=== PATIENT | male | born 1955 | race Caucasian/White ===

== ENCOUNTER 2024-01-21 07:42 | Outpatient (CLI) | payer MEDICARE, SELFPAY ==
[2024-01-21 08:14] LABS: Basophils Percent Auto 0.2 % (0.2-1.2); Eosinophils Percent Auto 0.2 % (0-4.4); Hematocrit 44.7 % (42.0-52.0); Hemoglobin 15.4 g/dL (14.0-18.0); Immature Granulocyte Absolute 0.04 K/mm3 (0.00-0.031); Immature Granulocyte Percent A 0.5 % (0-0.5); Lymphocytes Absolute Auto 2.27 K/mm3 (0.9-3.2); Lymphocytes Percent Auto 25.7 % (18.3-44.2); Mean Corpuscular HGB Conc 34.5 g/dl (32-36); Mean Corpuscular Volume 95.9 fl (80-100); Mean Platelet Volume 9.9 fl (7.4-10.4); Monocytes Absolute Auto 0.7 K/mm3 (0.1-0.6); Monocytes Percent Auto 7.4 % (2.6-8.5); Neutrophils Absolute Auto 5.8 K/mm3 (1.3-6.7); Platelet Count Result 212 k/mm3 (150-375); Red Blood Count 4.66 M/mm3 (4.6-6.20); Red Cell Distribution Width 12.7 % (11.5-14.5); White Blood Count 8.8 K/mm3 (4.5-10.0)
[2024-01-21 08:29] LABS: Rheumatoid Factor < 12.0 IU/ML (<12)
[2024-01-21 08:30] LABS: Alanine Aminotransferase 30 U/L (6-50); Albumin Level 4.6 g/dL (3.5-5.1); Alkaline Phosphatase 77 U/L (38-126); Anion Gap 11 mmol/L (4-12); Aspartate Amino Transferase 23 U/L (17-59); Bilirubin,Total 0.8 mg/dL (0.2-1.3); Blood Urea Nitrogen 16 mg/dL (9-20); CRP < 0.5 mg/dL (<1.0); Calcium 9.1 mg/dL (8.4-10.2); Carbon Dioxide 26 mmol/L (22-30); Chloride 102 mmol/L (98-107); Cholesterol 211 mg/dL (0-200); Estimated Glomerular Filt Rate > 60; Glucose 110 mg/dL (65-110); HDL Direct 61 mg/dL; Potassium 4.5 mmol/L (3.4-5.0); Sodium 139 mmol/L (137-145); Triglycerides 99 mg/dL (<150)
[2024-01-21 08:39] LABS: LDL Cholesterol Direct 128 mg/dL
[2024-01-21 08:57] LABS: Prostate Specific Antigen 1.1 ng/mL (< OR = 4.0)
[2024-01-21 09:03] LABS: Erythrocyte Sedimentation Rate 9 mm/hr (0-20)
[2024-01-21 09:14] LABS: Free T4 Free Thyroxine 0.86 ng/mL (0.78-2.19)
[2024-01-22 02:23] LABS: Triiodothyronine T3 Free 2.8 pg/mL (2.3-4.2)
[2024-01-24 18:43] LABS: Testosterone Free 37.9 pg/mL (35.0-155.0); Testosterone Total 214 ng/dL (250-1100)
== END 2024-01-21 07:43 | disposition home or self-care (01) ==
PROVIDERS: PCP Internal Medicine; Visit Provider Internal Medicine
DX: M25.50 Pain in unspecified joint (principal); E78.5 Hyperlipidemia, unspecified; R53.83 Other fatigue; Z12.5 Encounter for screening for malignant neoplasm of prostate
CPT/HCPCS: 36415; 80053; 80061; 84153; 84402; 84403; 84439; 84443; 84481; 85025; 85652; 86038; 86039; 86140; 86430; G0103

== ENCOUNTER 2024-09-03 12:00 | Outpatient (CLI) | payer MEDICARE, SELFPAY ==
[2024-09-03 13:55] LABS: Alanine Aminotransferase 33 U/L (6-50); Albumin Level 4.3 g/dL (3.5-5.1); Alkaline Phosphatase 68 U/L (38-126); Anion Gap 11 mmol/L (4-12); Aspartate Amino Transferase 31 U/L (17-59); Bilirubin,Total 0.9 mg/dL (0.2-1.3); Blood Urea Nitrogen 11 mg/dL (9-20); Calcium 8.8 mg/dL (8.4-10.2); Carbon Dioxide 22 mmol/L (22-30); Chloride 105 mmol/L (98-107); Estimated Glomerular Filt Rate > 60; Glucose 79 mg/dL (65-110); Magnesium 2.2 mg/dL (1.6-2.3); Potassium 4.3 mmol/L (3.4-5.0); Sodium 138 mmol/L (137-145)
== END 2024-09-03 12:01 | disposition home or self-care (01) ==
LOC: ANHLAB 12:04
PROVIDERS: PCP Internal Medicine; Visit Provider Internal Medicine
DX: R55 Syncope and collapse (principal)
CPT/HCPCS: 36415; 80053; 83735

== ENCOUNTER 2024-09-04 10:47 | Outpatient (CLI) | payer MEDICARE, BC, SELFPAY ==
[2024-09-04 11:11] LABS: Basophils Percent Auto 0.3 % (0.2-1.2); Eosinophils Absolute Auto 0.2 K/mm3 (0-0.3); Eosinophils Percent Auto 2.3 % (0-4.4); Hematocrit 46.1 % (42.0-52.0); Hemoglobin 15.8 g/dL (14.0-18.0); Immature Granulocyte Absolute 0.04 K/mm3 (0.00-0.031); Immature Granulocyte Percent A 0.6 % (0-0.5); Lymphocytes Absolute Auto 2.26 K/mm3 (0.9-3.2); Lymphocytes Percent Auto 34.7 % (18.3-44.2); Mean Corpuscular HGB Conc 34.3 g/dl (32-36); Mean Corpuscular Hemoglobin 32.4 pg (26-34); Mean Corpuscular Volume 94.5 fl (80-100); Monocytes Absolute Auto 0.7 K/mm3 (0.1-0.6); Monocytes Percent Auto 10.9 % (2.6-8.5); Neutrophils Absolute Auto 3.3 K/mm3 (1.3-6.7); Neutrophils Percent Auto 51.2 % (45.5-73.1); Platelet Count Result 250 k/mm3 (150-375); Red Blood Count 4.88 M/mm3 (4.6-6.20); Red Cell Distribution Width 12.7 % (11.5-14.5); White Blood Count 6.5 K/mm3 (4.5-10.0)
== END 2024-09-04 10:48 | disposition home or self-care (01) ==
LOC: ANHLAB 10:50
PROVIDERS: PCP Internal Medicine; Visit Provider Internal Medicine
DX: R55 Syncope and collapse (principal)
CPT/HCPCS: 36415; 85025

== ENCOUNTER 2024-09-10 13:59 | Outpatient (CLI) | payer MEDICARE, BC, SELFPAY ==
--- NOTE | ~2024-09-10 | US_ITS ---
EXAMINATION: US carotid duplex BI DATE: 09/10/2024 14:41 INDICATION: Syncope and collapse TECHNIQUE: Grayscale, color Doppler, and pulsed Doppler images of the cervical carotid arteries were obtained. The degree of vessel stenosis is placed in one of the following categories: normal, <50%, 5 0-69%, >=70% but less than near-occlusion, near-occlusion, or total occlusion. Note that percent sten osis relative to normal distal artery lumen diameter is indirectly measured from velocity measurement s as described by Gonzalo, et al. Radiology 2003; 229:340-346. COMPARISON: None. FINDINGS: RIGHT: The right common carotid artery (CCA) peak systolic velocity (PSV) is 85 cm/s. The right internal car otid artery (ICA) PSV is 70 cm/s. The right ICA end-diastolic velocity (EDV) is 24 cm/s. The right IC A/CCA PSV ratio is 1.0. Grayscale and color Doppler images demonstrate no appreciable plaque or steno sis in the ICA. The external carotid artery (ECA) PSV is 109 cm/s. There is antegrade flow in the rig ht vertebral artery. LEFT: The left CCA PSV is 124 cm/s. The left ICA PSV is 49 cm/s. The left ICA EDV is 15 cm/s. The left ICA/ CCA PSV ratio is 0.6. Grayscale and color Doppler images demonstrate no appreciable plaque or stenosi s in the ICA. The ECA PSV is 135 cm/s. There is antegrade flow in the left vertebral artery. IMPRESSION: 1. No evident plaque or stenosis in the right internal carotid artery. 2. No evident plaque or stenosis in the left internal carotid artery. Reviewed, dictated and finalized at location L. [employer]
--- NOTE | ~2024-09-10 | CT_ITS ---
EXAMINATION: CT brain wo con DATE: 09/10/2024 15:07 INDICATION: Syncope and collapse. TECHNIQUE: Computed tomography (CT) of the head was performed without intravenous contrast. The mA wa s adjusted according to patient size. Iterative reconstruction technique was employed. The dose-lengt h product was 681.00 mGy-cm. COMPARISON: None FINDINGS: There are scattered areas of low attenuation in the cerebral white matter, which is within normal limits for the patient's age. There is no intracranial hemorrhage, acute infarction, or abnor mal intracranial mass lesion. The ventricles are normal in size. There is mucosal thickening in the p aranasal sinuses. The orbits are normal. The mastoid air cells are normal. IMPRESSION: 1. Normal aging brain. Reviewed, dictated and finalized at location A. NQUENT TAX COLLECTOR IMPRESSION: 1. Normal aging brain.
--- OUTSIDE RECORDS SUMMARY | 2024-09-10 15:20 | XMS_ITS | Data Portability ---
Author Organization [place] - [facility] [employer], Main Office Address [address] [place] [address] Assessment Encounter Date Assessment Date Assessment LastModified by Organization Details LastModified Time 09/13/2022 09/13/2022 Screenings and immunizations discussed in order were patient agreeable and appropriate blood work 6 month follow-up [email or web address] Not available 09/15/2022 20:06:57 04/04/2023 04/04/2023 Lose weight walk regularly conservative measures for GERD and for cholesterol control see me in 6 months. Not available 04/14/2023 21:34:08 Plan of Treatment Reminders Order Date Submit Date Provider Last Modified By Organization Details Last Modified Time Details Appointments None recorded . Lab PSA, serum or plasma 023 09/14/19 23 [facility], [address] [place], [address], 3 09:43:40 lipid panel, blood 023 09/14/19 23 [facility], [address] [place], [address], 3 09:43:34 CMP, serum or plasma 023 09/14/19 23 [facility], [address] [place], [address], 3 19:02:29 CBC w/ auto diff 023 09/14/19 23 [facility], [address] [place], [address], 3 18:56:19 Referral None recorded . Procedures None recorded . Surgeries None recorded . Imaging None recorded . Medication Orders None recorded . Patient TargetsNo targets recorded. Patient InstructionsNo instructions recorded. Reason for Referral None Reported. Results Created Date Observation Date Name Description Value Unit Range Abnormal Flag Note LastModifiedBy Organization Detail LastModifiedTime 09/14/1909/13/2022 CBC/C OMPLE TE BLD COUNT W/DIF F white blood cells 8.5 x10'3 /uL 4.2-10 .8 Not Available [facility] (Lab) [address] [place], [address], 09/13/2022 18:56:19 09/14/1909/13/2022 CBC/C OMPLE TE BLD COUNT W/DIF F red blood cells 4.64 x10'6 /uL 4.10-5 .80 Not Available [facility] (Lab) [address] [place], [address], 09/13/2022 18:56:19 09/14/1909/13/2022 CBC/C OMPLE TE BLD COUNT W/DIF F hemoglobin 14.8 g/dL 13.2-1 7.0 Not Available [facility] (Lab) [address] [place], [address], 09/13/2022 18:56:19 09/14/1909/13/2022 CBC/C OMPLE TE BLD COUNT W/DIF F hematocrit 44.4 % 39.3-5 0.0 Not Available [facility] (Lab) [address] [place], [address], 09/13/2022 18:56:19 09/14/1909/13/2022 CBC/C OMPLE TE BLD COUNT W/DIF F mean red cell volume 95.7 fL 80.0-9 7.0 Not Available [facility] (Lab) [address] [place], [address], 09/13/2022 18:56:19 09/14/1909/13/2022 CBC/C OMPLE TE BLD COUNT W/DIF F mean red cell hemoglobin 31.9 pg 27.0-3 3.0 Not Available [facility] (Lab) [address] [place], [address], 09/13/2022 18:56:19 09/14/19 23 09/13/2022 CBC/C OMPLE TE BLD COUNT W/DIF F mean RBC HGB concentratio n 33.3 g/dL 31.0-3 6.0 Not Available [facility] (Lab) [address] [place], [address], 09/13/2022 18:56:19 09/14/1909/13/2022 CBC/C OMPLE TE BLD COUNT W/DIF F red cell distribution width 12.6 % 11.8-1 5.5 Not Available [facility] (Lab) [address] [place], [address], 09/13/2022 18:56:19 09/14/19 23 09/13/2022 CBC/C OMPLE TE BLD COUNT W/DIF F platelets 227 x10'3 /uL 150-40 0 Not Available [facility] (Lab) [address] [place], [address], 09/13/2022 18:56:19 09/14/19 23 09/13/2022 CBC/C OMPLE TE BLD COUNT W/DIF F mean platelet volume 10.1 fL 9.0-12 .4 Not Available [facility] (Lab) [address] [place], [address], 09/13/2022 18:56:19 09/14/1909/13/2022 CBC/C OMPLE TE BLD COUNT W/DIF F neutrophils 52.0 % 39.0-7 2.0 Not Available [facility] (Lab) [address] [place], [address], 09/13/2022 18:56:19 09/14/19 23 09/13/2022 CBC/C OMPLE TE BLD COUNT W/DIF F lymphocytes 35.2 % 16.0-4 7.0 Not Available [facility] (Lab) [address] [place], [address], 09/13/2022 18:56:19 09/14/19 23 09/13/2022 CBC/C OMPLE TE BLD COUNT W/DIF F monocytes 9.7 % 5.0-12 .0 Not Available [facility] (Lab) [address] [place], [address], 09/13/2022 18:56:19 09/14/19 23 09/13/2022 CBC/C OMPLE TE BLD COUNT W/DIF F eosinophils 2.0 % 1.0-7. 0 Not Available [facility] (Lab) [address] [place], [address], 09/13/2022 18:56:19 09/14/19 23 09/13/2022 CBC/C OMPLE TE BLD COUNT W/DIF F basophils 0.5 % 0.0-2. 0 Not Available [facility] (Lab) [address] [place], [address], 09/13/2022 18:56:19 09/14/19 23 09/13/2022 CBC/C OMPLE TE BLD COUNT W/DIF F immature granulocytes 0.6 % 0.00-0 .50 high Not Available [facility] (Lab) [address] [place], [address], 09/13/2022 18:56:19 09/14/1909/13/2022 CBC/C OMPLE TE BLD COUNT W/DIF F neutrophils, absolute count 4.44 x10'3 /uL 1.5-8. 0 Not Available [facility] (Lab) [address] [place], [address], 09/13/2022 18:56:19 09/14/19 23 09/13/2022 CBC/C OMPLE TE BLD COUNT W/DIF F lymphocytes, absolute count 3.01 x10'3 /uL 1.07-3 .43 Not Available [facility] (Lab) [address] [place], [address], 09/13/2022 18:56:19 09/14/19 23 09/13/2022 CBC/C OMPLE TE BLD COUNT W/DIF F monocytes, absolute count 0.83 x10'3 /uL 0.29-0 .99 Not Available [facility] (Lab) [address] [place], [address], 09/13/2022 18:56:19 09/14/19 23 09/13/2022 CBC/C OMPLE TE BLD COUNT W/DIF F eosinophils, absolute count 0.17 x10'3 /uL 0.02-0 .53 Not Available [facility] (Lab) [address] [place], [address], 09/13/2022 18:56:19 09/14/19 23 09/13/2022 CBC/C OMPLE TE BLD COUNT W/DIF F basophils, absolute count 0.04 x10'3 /uL 0.01-0 .08 Not Available [facility] (Lab) [address] [place], [address], 09/13/2022 18:56:19 09/14/1909/13/2022 CBC/C OMPLE TE BLD COUNT W/DIF F immature granulocytes ,absolute 0.05 x10'3 /uL 0.00-0 .05 Not Available [facility] (Lab) [address] [place], [address], 09/13/2022 18:56:19 09/14/19 23 09/13/2022 CBC/C OMPLE TE BLD COUNT W/DIF F nucleated red blood cells 0.0 % -0 Not Available [facility] (Lab) [address] [place], [address], 09/13/2022 18:56:19 09/14/1909/13/2022 CBC/C OMPLE TE BLD COUNT W/DIF F NRBC# 0.00 x10'3 /uL Not Available [facility] (Lab) [address] [place], [address], 09/13/2022 18:56:19 09/14/1909/13/2022 LIPID PANEL cholesterol 203 mg/dL 140-19 9 high NIH ZOHRA NSUS RECOM MENDA TION FOR GERSON STERO L: ADULT CHILD LOW RISK: <200 <170 BORDE RLINE : <200- 239 ----- HIGH RISK: >240 >200 Not Available [facility] (Lab) [address] [place], [address], 09/13/2022 19:02:18 09/14/1909/13/2022 LIPID PANEL triglyceride s 256 mg/dL 0-150 high NIH ZOHRA NSUS REPOR T RECOM MENDA TION FOR TRIGL YCERI ARLYN: ADULT CHILD LOW RISK: <150 ----- BODER LINE: 150-1 99 ----- HIGH RISK: >200 ----- Not Available [facility] (Lab) [address] [place], [address], 09/13/2022 19:02:18 09/14/19 23 09/13/2022 LIPID PANEL HDL cholesterol 54 mg/dL 40- Not Available [facility] (Lab) [address] [place], [address], 09/13/2022 19:02:18 09/14/19 23 09/13/2022 LIPID PANEL LDL cholesterol, calculated 98 mg/dL 0-130 NIH ZOHRA NSUS REPOR T RECOM MENDA TIONS FOR LDL: ADULT CHILD LOW RISK <130 <110 (OPTI MAL LDL) <100 ----- BORDE RLINE : 130-1 59 ----- HIGH RISK: >160 >130 A TRIGL YCERI DE RESUL T >400 INVAL IDATE S THE CALCU LATIO N FOR LDL FRACT IONAT ION - THE LDL RESUL T WILL NOT BE REPOR CHRIS. Not Available [facility] (Lab) [address] [place], [address], 09/13/2022 19:02:18 09/14/19 23 09/13/2022 COMPR EHENS KARLY METAB OLIC PANEL sodium 138 mmol/ L 137-14 5 Not Available [facility] (Lab) [address] [place], [address], 09/13/2022 19:02:29 09/14/19 23 09/13/2022 COMPR EHENS KARLY METAB OLIC PANEL potassium 4.5 mmol/ L 3.5-5. 1 Not Available [facility] (Lab) [address] [place], [address], 09/13/2022 19:02:29 09/14/19 23 09/13/2022 COMPR EHENS KARLY METAB OLIC PANEL chloride 103 mmol/ L 98-107 Not Available [facility] (Lab) [address] [place], [address], 09/13/2022 19:02:29 09/14/19 23 09/13/2022 COMPR EHENS KARLY METAB OLIC PANEL carbon dioxide 27 mmol/ L 22-30 Not Available [facility] (Lab) [address] [place], [address], 09/13/2022 19:02:29 09/14/19 23 09/13/2022 COMPR EHENS KARLY METAB OLIC PANEL anion gap 12.5 mmol/ L 14-22 low Not Available [facility] (Lab) [address] [place], [address], 09/13/2022 19:02:29 09/14/19 23 09/13/2022 COMPR EHENS KARLY METAB OLIC PANEL glucose 89 mg/dL 70-99 Not Available [facility] (Lab) [address] [place], [address], 09/13/2022 19:02:29 09/14/19 23 09/13/2022 COMPR EHENS KARLY METAB OLIC PANEL BUN 15 mg/dL 8-19 Not Available [facility] (Lab) [address] [place], [address], 09/13/2022 19:02:29 09/14/19 23 09/13/2022 COMPR EHENS KARLY METAB OLIC PANEL creatinine 0.93 mg/dL 0.66-1 .25 Not Available [facility] (Lab) [address] [place], [address], 09/13/2022 19:02:29 09/14/19 23 09/13/2022 COMPR EHENS KARLY METAB OLIC PANEL GFR >60 Refer ence Range : [place] ge GFR Healt hy Adult : >60 mL/mi n/1.7 3 m2 Chron ic Kidne y Disea se: 15-60 mL/mi n/1.7 3 m2 Kidne y Failu re: <15/m L/min /1.73 m2 www.n iddk. nih.g ov The MDRD study equat ion has not been valid ated in child daniela <18 years of age; pregn ant women ; the elder ly >85 years of age; or in some racia l or ethni c subgr oups, such as [facility] nics. Outsi de the valid ated angi eters , estim ated GFR is less accur ate, requi ring clini mckenna judgm ent on a case- by-ca se basis . Clini mckenna inter preta tion for other races and ages must be made by the clini nina. The MDRD study equat ion has not been valid ated for the evalu ation of serum creat inine relat ed to nutri joseph l statu s or medic ation usage . For perso ns <18 years of age, a pedia tric GFR calcu lator is avail able on the [facility] websi te: https ://maggie guevara.basil rg/pr ofess ional s/kdo qi/gf r_cal culat or Not Available [facility] (Lab) [address] [place], [address], 09/13/2022 19:02:29 09/14/19 23 09/13/2022 COMPR EHENS KARLY METAB OLIC PANEL alkaline phosphatase 101 U/L 38-126 Not Available [facility] (Lab) [address] [place], [address], 09/13/2022 19:02:29 09/14/19 23 09/13/2022 COMPR EHENS KARLY METAB OLIC PANEL alanine aminotransfe rase 33 U/L 0-50 Not Available [facility] (Lab) [address] [place], [address], 09/13/2022 19:02:29 09/14/19 23 09/13/2022 COMPR EHENS KARLY METAB OLIC PANEL aspartate aminotransfe rase 28 U/L 15-46 Not Available [facility] (Lab) [address] [place], [address], 09/13/2022 19:02:29 09/14/19 23 09/13/2022 COMPR EHENS KARLY METAB OLIC PANEL bilirubin, total 0.50 mg/dL 0.20-1 .30 Not Available [facility] (Lab) [address] [place], [address], 09/13/2022 19:02:29 09/14/19 23 09/13/2022 COMPR EHENS KARLY METAB OLIC PANEL calcium 9.1 mg/dL 8.4-10 .2 Not Available [facility] (Lab) [address] [place], [address], 09/13/2022 19:02:29 09/14/19 23 09/13/2022 COMPR EHENS KARLY METAB OLIC PANEL total protein 7.4 g/dL 6.3-8. 2 Not Available [facility] (Lab) [address] [place], [address], 09/13/2022 19:02:29 09/14/19 23 09/13/2022 COMPR EHENS KARLY METAB OLIC PANEL albumin 4.3 g/dL 3.0-4. 4 Not Available [facility] (Lab) [address] [place], [address], 09/13/2022 19:02:29 09/14/19 23 09/13/2022 COMPR EHENS KARLY METAB OLIC PANEL globulin 3.1 g/dL 2.6-4. 2 Not Available [facility] (Lab) [address] [place], [address], 09/13/2022 19:02:29 09/14/19 23 09/13/2022 COMPR EHENS KARLY METAB OLIC PANEL A/G ratio 1.4 ratio 1.0-2. 0 Not Available [facility] (Lab) [address] [place], [address], 09/13/2022 19:02:29 09/14/19 23 09/13/2022 PSA SCREE N PSA medicare screen 1.14 NG/mL 0.00-4 .00 Not Available [facility] (Lab) [address] [place], [address], 09/13/2022 19:43:06 Result Notes None recorded. Problems Name Problem SNOMED Code Status Onset Date Resolution Date Notes Provider Name and Address Organization Details Recorded Time Pneumonia 093132742 Active Not Available [facility] 3 18:11:50 Gastroesophag eal reflux disease 090796814 Active Not Available [facility] 3 18:11:50 Bronchitis 12537210 Active Not Available [facility] 3 18:11:50 Sinusitis 38755427 Active Not Available [facility] 3 18:11:50 Cough 92738526 Active Not Available [facility] 3 18:11:50 Hypercholeste rolemia 57209174 Active 2022 Khoi Syed MD [address] [place] [address], [facility] [address], [place], [address] , [employer] 3 21:33:50 Problem Notes None recorded. Procedures Surgical History Date Name Laterality Status Provider Name and Address Organization Details Recorded Time Tonsillectomy completed EAGLE Andre [facility] 09/13/2022 14:49:25 Imaging Results None recorded. Procedure Notes None recorded. Medical Equipment None Reported. Allergies No known drug allergies Medications Name Sig Start Date Stop Date Status Note LastModified by Organization Details LastModified Time prednisone 10 mg tablet Take by oral route. 03/20 completed Not Available Not Available Not Available Medrol (Aureliano) 4 mg tablets in a dose pack Take 1 tablet by oral route as directed . active Not Available Not Available No t Available Zithromax Z-Aureliano 250 mg tablet Take 2 TABLEts the first day then 1/day 03/20 completed Not Available Not Available Not Available Levaquin 500 mg tablet Take 1 tablet every 24 hours by oral route. active Not Available Not Available No t Available Vitals Date Recorded Body height Body mass index (BMI) Body weight Body temperature Heart rate Systolic blood pressure Diastolic blood pressure Provider Name and Address Organization Details Last Updated DateTime 3 182.88 cm 36.1 kg/m2 985545. 57 g 97.6 [degF] 74 /min 134 mm[Hg] 84 mm[Hg] EAGLE Andre [facility] 3 14:58:24 Date Recorded Body height Body mass index (BMI) Body weight Body temperature Heart rate Systolic blood pressure Diastolic blood pressure Provider Name and Address Organization Details Last Updated DateTime 3 182.88 cm 36.2 kg/m2 967682. 16 g 98.3 [degF] 68 /min 132 mm[Hg] 80 mm[Hg] Vane coleman RN [facility] [employer] 3 11:32:32 Social History Question Answer Notes LastModified by Organization Details LastModified Time Tobacco Smoking Status Current Every Day Smoker cigars EAGLE Andre [facility] 09/13/2022 14:52:20 Do You Have An Advance Directive? No [email or web address] Information not available 09/13/2022 What Is Your Level Of Alcohol Consumption? Occasional [email or web address] Information not available 09/13/2022 Are You Blind Or Do You Have Difficulty Seeing? Yes Glasses Information not available 04/04/2023 Is Blood Transfusion Acceptable In An Emergency? Yes [email or web address] Information not available 09/13/2022 What Is Your Level Of Caffeine Consumption? Heavy [email or web address] Information not available 09/13/2022 In The 14 Days Before Symptom Onset, Have You Had Close Contact With A Laboratory-confi rmed COVID-19 While That Case Was Ill? No [email or web address] Information not available 09/13/2022 In The 14 Days Before Symptom Onset, Have You Had Close Contact With A Person Who Is Under Investigation For COVID-19 While That Person Was Ill? No [email or web address] Information not available 09/13/2022 Are You Currently Employed? Yes [email or web address] Information not available 09/13/2022 Are You Deaf Or Do You Have Serious Difficulty Hearing? No Information not available 04/04/2023 What Type Of Diet Are You Following? REGULAR [email or web address] Information not available 09/13/2022 What Is The Highest Grade Or Level Of School You Have Completed Or The Highest Degree You Have Received? 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 Yes Brother Passed In May [email or web address] Information not available 09/13/2022 What Is The Fluoride Status Of Your Home? Unknown [email or web address] Information not available 09/13/2022 Do You Use Insect Repellent Routinely? Yes [email or web address] Information not available 09/13/2022 Where Do You Live? [facility] [email or web address] Information not available 09/13/2022 Do You Have A Medical Power Of Press Cutter? No [email or web address] Information not available 09/13/2022 What Was The Date Of Your Most Recent Tobacco Screening? 09/13/2022 [email or web address] Information not available 09/13/2022 How Many Children Do You Have? 2 [email or web address] Information not available 09/13/2022 Do You Have Any Pets? No [email or web address] Information not available 09/13/2022 What Is Your Relationship Status? [email or web address] Information not available 09/13/2022 Do You Use Your Seat Belt Or Car Seat Routinely? Yes [email or web address] Information not available 09/13/2022 Do You Have Smoke And Carbon Monoxide Detectors In Your Home? Yes [email or web address] Information not available 09/13/2022 Are You Passively Exposed To Smoke? Yes [email or web address] Information not available 09/13/2022 Are There Any Smokers In Your House? No [email or web address] Information not available 09/13/2022 Do You Feel Stressed (tense, Restless, Nervous, Or Anxious, Or Unable To Sleep At Night)? [id number] [email or web address] Information not available 09/13/2022 Do You Use Any Illicit Or Recreational Drugs? No Information not available 09/13/2022 Do You Use Sunscreen Routinely? Yes [email or web address] Information not available 09/13/2022 How Many Years Have You Smoked Tobacco? 20 Information not available 09/13/2022 Have You Recently Traveled Abroad? No [email or web address] Information not available 09/13/2022 Do You Have Any Dietary Restrictions? No [email or web address] Information not available 09/13/2022 Do You Or Have You Ever Used Any Other Forms Of Tobacco Or Nicotine? No [email or web address] Information not available 09/13/2022 Sex: Unknown Functional Status Question Answer Note LastModified by Organizat ion Details LastModified Time Do you have difficulty walking or climbing stairs? No Information not available 04/04/2023 Do you have transportation difficulties? No Information not available 04/04/2023 Are you able to walk? [email or web address] Information not available 04/04/2023 Do you have difficulty doing errands alone? No Information not available 04/04/2023 Are you able to care for yourself? Yes Information not available 04/04/2023 Do you have difficulty dressing or bathing? No Information not available 04/04/2023 What is your exercise level? None [email or web address] Information not available 09/13/2022 Mental Status Question Answer Note LastModified by Organization D etails LastModified Time Do you have difficulty concentrating, remembering or making decisions? No Information no t available 04/04/2023 Family History Relationship Description Onset Age of this Age Resolved Age Notes LastModified by Organization Details LastModified Time Mother Family history of malignant neoplasm [email or web address] Not available 03/2023 14:48:52 Mother Rheumatoid arthritis [email or web address] Not available 03/2023 14:48:32 Mother Hypertensive disorder [email or web address] Not available 03/2023 14:48:45 Father Family history of malignant neoplasm [email or web address] Not available 03/2023 14:48:57 Medical History Condition Response KIDNEY DISEASE Y HAVE YOU BEEN HOSPITALIZED OR SEEN IN [facility] ER IN THE PAST YEAR ? N Immunizations Vaccine Type Date Status Note Provider Nam e and Address Organization Details Recorded Time COVID-19 vaccine, vector-nr, rS-Ad26, PF, 0.5 mL 10/10/2020 completed Not Available [facility] 3 18:11:51 COVID-19, mRNA, LNP-S, PF, 100 mcg/0.5mL dose or 50 mcg/0.25mL dose 07/12/2021 completed Not Available [facility] 3 18:11:51 Past Encounters Encounter ID Performer Location Encounter Start Date Encounter Closed Date Diagnosis/Indication Diagnosis SNOMED-CT Code Diagnosis ICD10 Code Diagnosis Note [id number] Khoi Syed MD [facility] [address] [facility] , [place] [address] 09/13/2022 14:28:49 09/13/2022 16:03:41 Screening for cardiovascular system disease 173508915 Z13.6 Screening for malignant neoplasm of prostate 641300004 Z12.5 Adult heal th examination 822310584 Z00.00 [id number] Khoi Syed MD [facility] [address] [place] [address] 04/04/2023 11:06:21 04/04/2023 12:25:41 Hypercholesterolemia 73259742 E78.00 Gastroesop hageal reflux disease 395826032 K21.9 Health Concerns Section Related Observation LastModified by Organization Detai ls LastModified Time None Recorded Concern Status LastModified by Organization Details LastModified Time None Recorded Advance Directives Directive N: Payers Encounter Date Sequence Insurance Name Policy Number Policy Cordero Covered Member ID Cordero Member ID Guarantor Name 09/13/2022 1 [place] Freddy Gabriel [id number] Freddy Dean Gabriel 09/13/2022 2 [place] [id number] Freddy Vacath [id number] Freddy Janerath 04/04/2023 1 [place] Freddy Janerath [id number] Freddy Dean Gabriel 04/04/2023 2 [place] [id number] Freddy Janerath [id number] Freddy Gabriel Notes Date Note Type Note Provider Name and Address Organization Details Recorded Time 09/13/2022 text/html 67-year-old new patient meds none allergies none surgeries none family history dad liver cancer socially does not smoke drinks 12 beers a week retired COVID vaccine 1 booster flu not up-to-date shingles not up-to-date Khoi Syed MD [address], [facility] [address], [place], [address], [employer] 09/15/2022 20:07:15 04/04/2023 text/html Ankle hurt Mildl y elevated cholesterol Khoi Syed MD [address], [address], [place], [address], [employer] 04/14/2023 21:34:31
--- OUTSIDE RECORDS SUMMARY | 2024-09-10 15:20 | XMS_ITS | CONTINUITY OF CARE DOCUMENT ---
Author Name olvin bah Address Unknown Organization [facility] Address [address] [place] [address] [address] [place] [address] Phone [phone] Care Team Providers Care Tin Assorter Name Role Phone Eric ALEXIS, Negro Unavailable [phone] Khoi Syed DO Unavailable Khoi Syed DO Unavailable INSURANCE PROVIDERS Payer name Policy type / Coverage type [place] red alliance party ID [id number] PAY
--- OUTSIDE RECORDS SUMMARY | 2024-09-10 15:20 | XMS_ITS | Data Portability ---
Author Organization [place] - [facility], [facility] [place] Address [address] [place] [address] Care Team Providers Care Stamp Analyst Name Role Phone JANIS RODRÍGUEZ Primary Care Provider [phone] Assessment No assessment recorded. Plan of Treatment Reminders Order Date Submit Date Provider Last Modified By Organization Details Last Modified Time Details Appointments None recorded. Lab influenza virus A + B + SARS-CoV-2 (COVID19) Ag panel, rapid IA, upper respiratory specimen 2024 025 [email or web address] [facility], [address] [place] [address], [address], [place], [address], 20:20:37 Referral None recorded. Procedures None recorded. Surgeries None recorded. Imaging None recorded. Medication Orders None recorded. Patient TargetsNo targets recorded. Patient Instructions Encounter Date Encounter Id Patient Instructions Last Modified By Organization Details Last Modified Time 08/26/2024 [id number] influenza (flu): care instructions [email or web address] Not available 08/26/2024 20:20:37 Pt has been give n complete discharge instructions; all questions were answered prior to discharge. Not available 08/26/2024 20:20:41 If your conditio n worsens we recommend that you receive another evaluation at the emergency room immediately or contact your primary medical clinics after hours call service to discuss your concerns. You must understand that you've received an Urgent Care treatment only and that you may released before all your medical problems are known or treated. You, the patient, will arrange follow up care as instructed. Return to clinic if symptoms get worse or persist after 48 hours of treatment. [email or web address] Not available 08/26/2024 20:20:48 Reason for Referral None Reported. Results Created Date Observation Date Name Description Value Unit Range Abnormal Flag Note LastModifiedBy Organization Detail LastModifiedTime 08/26/1908/26/2024 influ stiven virus A + B + SARS- CoV-2 (COVI D19) Ag panel , rapid IA, upper respi rator y speci men Flu/COVID-19 Positi ve Flu A Not Available [facility] [place] [address], [address], [place], [address], 08/26/2024 20:19:59 Result Notes None recorded. Problems Name Problem SNOMED Code Status Onset Date Resolution Date Notes Provider Name and Address Organization Details Recorded Time Kidney disease 36809027 Completed 025 08/26/2024 Leroy Ortiz [facility] 19:57:36 Problem Notes None recorded. Procedures Surgical History Date Name Laterality Status Provider Name and Address Organization Details Recorded Time tonsillectomy completed Leroy Ortiz [facility] 08/26/2024 19:58:06 Imaging Results None recorded. Procedure Notes None recorded. Medical Equipment None Reported. Allergies No known drug allergies Medications Name Sig Start Date Stop Date Status Note LastModified by Organization Details LastModified Time azithromycin 250 mg tablet 08/26 completed Not Available Not Available Not Available benzonatate 200 mg capsule TAKE 1 CAPSULE BY MOUTH THREE TIMES DAILY NEEDED 08/26 completed Not Available Not Available Not Available prednisone 20 mg tablet TAKE 1 TABLET BY MOUTH EVERY DAY FOR 7 DAYS 08/26 completed Not Available Not Available Not Available Vitals Date Recorded Heart rate Oxygen saturation Oxygen saturation in Arterial blood by Pulse oximetry Respiratory rate Body height Body mass index (BMI) Body weight Body temperature Systolic blood pressure Diastolic blood pressure Provider Name and Address Organization Details Last Updated DateTime 89 /min 94 % 94 % 16 /min 182.88 cm 35.9 kg/m2 198912. 98 g 97.8 [degF] 164 mm[Hg] 93 mm[Hg] Leroy Ortiz [facility] 19:56:30 Social History None recorded. Functional Status None recorded. Mental Status None recorded. Family History Nothing Reported. Medical History Condition Response Coronary Artery Disease N Anxiety/Depression N Gout N Atrial Fibrillation N Colon Cancer N Kidney Stones N Hyperthyroidism N Breast Cancer N Blood disorders N Ostomy N Lung Disease N COPD N Depression N Glaucoma N Hypothyroidism N Peripheral Arterial Disease N Pacemaker N Clotting Disorder N Prostate Problems N Diverticulitis/Diverticulosis N Paralysis N Lung Mass N Deep Vein Thrombosis N Obstructive Sleep Apnea N Cystic Fibrosis N Anxiety Disorder N Autoimmune disease N Arthritis N Blood Clot N Developmental Problems N Cancer N Stroke N Crohn's Disease N Chronic Kidney Disease N Endometriosis N Bladder or Kidney Problems N High Cholesterol N Liver Disease N Arrhythmia N Dialysis N Schizophrenia N Fibromyalgia N Kidney Disease N Chronic Obstructive Pulmonary Disease N Parkinson's Disease N Migraines N Brain Tumors N ADD/ADHD N Anemia N Multiple Sclerosis N Colon Polyps N Brain Injury N Heart Attack (RI) N Diabetes N Anticoagulation therapy N Cardiomyopathy N Bleeding Disorder N Heart Murmur N Cerebral Palsy N AIDS/HIV N Congestive Heart Failure (CHF) N Hyperlipidemia N Eczema N Back Problems N Diverticulitis N Dementia N Asthma N Atrial Flutter N Lupus N Peripheral Vascular Disease N Psoriasis N Epilepsy/Seizures N Reflux/GERD N Sleep Apnea N Thyroid Disorder N GERD/Reflux N Hepatitis N Aneurysm N Cirrhosis N Heart Disease N Pulmonary Embolism N Hypertension N Autism Spectrum Disorder (ASD) N Osteoporosis N Past Encounters Encounter ID Performer Location Encounter Start Date Encounter Closed Date Diagnosis/Indication Diagnosis SNOMED-CT Code Diagnosis ICD10 Code Diagnosis Note [id number] Bogdan Arredondo, [employer] [facility] [place] [address] [place] [address], [place] [address] 08/26/2024 19:51:27 08/26/2024 20:25:08 Influenza-like illness 65750052 B34.9 Influenza caused by Influenza A virus 555075974 J09.X2 Pt is outside the opportune window for Tamiflu. OTC flu formulatio n medication to be used as directed. Health Concerns Section Related Observation LastModified by Organization Detai ls LastModified Time None Recorded Concern Status LastModified by Organization Details LastModified Time None Recorded Advance Directives Directive None Recorded Payers Encounter Date Sequence Insurance Name Policy Number Policy Cordero Covered Member ID Cordero Member ID Guarantor Name 08/26/2024 2 [place] [id number] Rex Gabriel [id number] Freddy Gabriel 08/26/2024 1 [place] Freddy Gabriel [id number] Freddy Gabriel Notes Date Note Type Note Provider Name and Address Organization Details Recorded Time 08/26/2024 text/html Upper Respirator y SymptomsReported bypatient.Location:[facility]; nasal Quality:congested Severity:moderate Onset/Timing:date of onset: (08/22/2024) Context:no sick contacts Associated Symptoms:no sputum production; no shortness of breath; no wheezing; no sore throat; no vomiting; no diarrhea; no nausea; no conjunctivitis;fatigue ;headache;malaise Bogdan Arredondo, [employer]CHO[employer] TE[employer]ER-C [address] [facility], [place], [address], [facility] - [facility] 08/26/2024 20:21:04
== END 2024-09-10 14:00 | disposition home or self-care (01) ==
PROVIDERS: PCP Internal Medicine; Visit Provider Internal Medicine
DX: R55 Syncope and collapse (principal)
CPT/HCPCS: 70450; 93880

== ENCOUNTER 2024-09-18 13:27 | Outpatient (CLI) | payer MEDICARE, BC, SELFPAY ==
--- NOTE | 2024-09-18 | ECHO_ITS ---
Patient Info Name: Freddy Varela Age: 69 years : 1955 Gender: Male Ht: 72 in Wt: 270 lbs BSA: 2.54 m2 HR: 71 bpm BP: 148 / 88 mmHg Heart Rhythm: Sinus Rhythm Technical Quality: Fair Exam Date: 09/18/2024 2:08 PM Exam Location: Echo Lab Patient Status: Outpatient Admit Date: 09/18/2024 Staff Ordering Physician: KunalKhoi MD Policy Specialist: Ivonne Mariscal RDCS Attending Provider: BessyKhoi MD Exam Type: CA echo doppler color flow Study Info Indications - SYNCOPE AND COLLAPSE Complete two-dimensional, color flow and Doppler transthoracic echocardiogram is performed. Summary 1. Complete two-dimensional, color flow and Doppler transthoracic echocardiogram is performed. 2. Left ventricular chamber dimension is mildly enlarged. 3. Left ventricular systolic function is normal, estimated at 60-65%. 4. The left ventricular diastolic function is grade I diastolic dysfunction. 5. E/e' 13 is mildly elevated. 6. Left atrial chamber dimension is mildly enlarged. 7. There is mild aortic valve sclerosis. 8. There is trace aortic valve regurgitation. 9. The mitral valve has mildly calcified annulus. 10. There is trace tricuspid valve regurgitation. 11. No pulmonary hypertension, estimated pulmonary arterial systolic pressure is 28 mmHg. 12. There is trace pulmonic regurgitation. 13. The aortic root size at the sinus of Valsalva is borderline dilated at 4.0 cm. 14. Dilated inferior vena cava with >50% collapse upon inspiration consistent with elevated right atrial pressure, 10 mmHg. Left Ventricle E/e' 13 is mildly elevated. Left ventricular chamber dimension is mildly enlarged. Left ventricular systolic function is normal, estimated at 60-65%. The left ventricular diastolic function is grade I diastolic dysfunction. Right Ventricle Right ventricular systolic function is normal and with normal TAPSE 2.7 cm. Right ventricular chamber dimension is normal. Left Atria Left atrial chamber dimension is mildly enlarged. Right Atria Right atrial chamber dimension is normal. Aortic Valve The aortic valve is trileaflet. There is mild aortic valve sclerosis. There is no aortic valve stenosis. There is trace aortic valve regurgitation. Pulmonic Valve There is trace pulmonic regurgitation. Mitral Valve The mitral valve has mildly calcified annulus. There is no mitral valve stenosis. There is no mitral valve regurgitation. Tricuspid Valve There is trace tricuspid valve regurgitation. No pulmonary hypertension, estimated pulmonary arterial systolic pressure is 28 mmHg. Pericardium/Pleural There is no pericardial effusion. Inferior Vena Cava Dilated inferior vena cava with >50% collapse upon inspiration consistent with elevated right atrial pressure, 10 mmHg. Aorta The aortic root size at the sinus of Valsalva is borderline dilated at 4.0 cm. Left Ventricular Outflow Tract Name Value Normal LVOT 2D LVOT Diameter 2.0 cm LVOT Doppler LVOT Peak Gradient 5 mmHg LVOT Mean Gradient 2 mmHg LVOT VTI 21 cm LVOT VTI/AV VTI Ratio 0.7 LVOT Stroke Volume 70 ml LVOT CO 5.4 l/min LVOT CI 2.1 l/min/m2 Pulmonic Valve Name Value Normal RVOT Doppler RVOT Peak Gradient 2 mmHg PV Doppler PV Peak Gradient 4 mmHg PV Regurgitation Doppler SD Peak End Diastolic Velocity 122 cm/s Mitral Valve Name Value Normal MV Doppler MV Decel Dickenson 247 cm/s2 MV PHT 76 ms MV Area (PHT) 2.9 cm2 4.0-5.0 MV Diastolic Function MV E Peak Velocity 65 cm/s MV A Peak Velocity 91 cm/s MV E/A 0.7 MV Decel Time 263 ms MV Annular TDI MV E/e' (Septal) 13.3 <=8.0 MV E/e' (Lateral) 13.0 <=8.0 MV E/e' (Average) 13.1 Tricuspid Valve Name Value Normal TV Regurgitation Doppler TR Peak Velocity 211 cm/s TR Peak Gradient 18 mmHg Estimated PAP/RSVP RA Pressure 10 mmHg <=5 PA Systolic Pressure 28 mmHg <36 RV Systolic Pressure 28 mmHg <36 Aortic Valve Name Value Normal AV Doppler AV Peak Velocity 151 cm/s AV Peak Gradient 9 mmHg AV Mean Gradient 5 mmHg AV VTI 30 cm AV Area (Cont Eq VTI) 2.4 cm2 >=3.0 AV Area (Cont Eq Harry) 2.4 cm2 AV Regurgitation 2D LVOT Area 3.3 cm2 Ventricles Name Value Normal LV Dimensions 2D/MM IVS Diastolic Thickness (2D) 1.1 cm 0.6-1.0 LVID Diastole (2D) 5.0 cm 4.2-5.8 LVIW Diastolic Thickness (2D) 1.0 cm 0.6-1.0 LVID Systole (2D) 3.1 cm 2.5-4.0 LVOT Diameter 2.0 cm LV Mass (2D Cubed) 197.28 g 88.00-224.00 LV Mass Index (2D Cubed) 78 g/m2 49-115 Relative Wall Thickness (2D) 0.41 LV Fractional Shortening/Ejection Fraction 2D/MM LV Fractional Shortening (2D) 38 % 25-43 LV EF (2D Teicholz) 68 % 52-72 LV Diastolic Volume (4C MOD) 145 ml LV EF (4C MOD) 60 % LV Diastolic Volume (2C MOD) 135 ml LV EF (2C MOD) 66 % LV Diastolic Volume (BP MOD) 142 ml 62-150 LV Diastolic Volume Index (BP MOD) 56 ml/m2 34-74 LV Systolic Volume (BP MOD) 57 ml 21-61 LV Systolic Volume Index (BP MOD) 22 ml/m2 11-31 LV EF (BP MOD) 60 % 52-72 LV Diastolic Length (4C) 8.7 cm LV Systolic Length (4C) 7.1 cm LV Stroke Volume (4C MOD) 87 ml Atria Name Value Normal RA Dimensions RA Area (4C) 17.4 cm2 <=18.0 Report Signatures
--- OUTSIDE RECORDS SUMMARY | 2024-09-18 13:32 | XMS_ITS | Data Portability ---
Author Organization [place] - [facility] [employer], Main Office Address [address] [place] [address] Assessment Encounter Date Assessment Date Assessment LastModified by Organization Details LastModified Time 09/13/2022 09/13/2022 Screenings and immunizations discussed in order were patient agreeable and appropriate blood work 6 month follow-up Not available 09/15/2022 20:06:57 04/04/2023 04/04/2023 Lose weight walk regularly conservative measures for GERD and for cholesterol control see me in 6 months. Not available 04/14/2023 21:34:08 Plan of Treatment Reminders Order Date Submit Date Provider Last Modified By Organization Details Last Modified Time Details Appointments None recorded . Lab PSA, serum or plasma 023 09/14/19 23 [facility], [address] [place], [address], 3 09:43:40 lipid panel, blood 023 09/14/19 23 [facility], [address] [place], [address], 3 09:43:34 CMP, serum or plasma 023 09/14/19 23 [facility], [address] [place], [address], 3 19:02:29 CBC w/ auto diff 023 09/14/19 23 [facility], [address] [place], [address], 3 18:56:19 Referral None recorded . Procedures [...] 8.5 x10'3 /uL 4.2-10 .8 Not Available [facility] (Lab) [address] [place], [address], 09/13/2022 18:56:19 09/14/1909/13/2022 CBC/C OMPLE TE BLD COUNT W/DIF F red blood cells 4.64 x10'6 /uL 4.10-5 .80 Not Available [facility] (Lab) [address] [place], [address], 09/13/2022 18:56:19 09/14/1909/13/2022 CBC/C OMPLE TE BLD COUNT W/DIF F hemoglobin 14.8 g/dL 13.2-1 7.0 Not Available [facility] (Lab) [address] [place], [address], 09/13/2022 18:56:19 09/14/1909/13/2022 CBC/C OMPLE TE BLD COUNT W/DIF F hematocrit 44.4 % 39.3-5 0.0 Not Available [facility] (Lab) [address] [place], [address], 09/13/2022 18:56:19 09/14/1909/13/2022 CBC/C OMPLE TE BLD COUNT W/DIF F mean red cell volume 95.7 fL 80.0-9 7.0 Not Available [facility] (Lab) [address] [place], [address], 09/13/2022 18:56:19 09/14/1909/13/2022 CBC/C OMPLE TE BLD COUNT W/DIF F mean red cell hemoglobin 31.9 pg 27.0-3 3.0 Not Available [facility] (Lab) [address] [place], [address], 09/13/2022 18:56:19 09/14/19 23 09/13/2022 CBC/C OMPLE TE BLD COUNT W/DIF F mean RBC HGB concentratio n 33.3 g/dL 31.0-3 6.0 Not Available [facility] (Lab) [address] [place], [address], 09/13/2022 18:56:19 09/14/1909/13/2022 CBC/C OMPLE TE BLD COUNT W/DIF F red cell distribution width 12.6 % 11.8-1 5.5 Not Available [facility] (Lab) [address] [place], [address], 09/13/2022 18:56:19 09/14/19 23 09/13/2022 CBC/C OMPLE TE BLD COUNT W/DIF F platelets 227 x10'3 /uL 150-40 0 Not Available [facility] (Lab) [address] [place], [address], 09/13/2022 18:56:19 09/14/19 23 09/13/2022 CBC/C OMPLE TE BLD COUNT W/DIF F mean platelet volume 10.1 fL 9.0-12 .4 Not Available [facility] (Lab) [address] [place], [address], 09/13/2022 18:56:19 09/14/1909/13/2022 CBC/C OMPLE TE BLD COUNT W/DIF F neutrophils 52.0 % 39.0-7 2.0 Not Available [facility] (Lab) [address] [place], [address], 09/13/2022 18:56:19 09/14/19 23 09/13/2022 CBC/C OMPLE TE BLD COUNT W/DIF F lymphocytes 35.2 % 16.0-4 7.0 Not Available [facility] (Lab) [address] [place], [address], 09/13/2022 18:56:19 09/14/19 23 09/13/2022 CBC/C OMPLE TE BLD COUNT W/DIF F monocytes 9.7 % 5.0-12 .0 Not Available [facility] (Lab) [address] [place], [address], 09/13/2022 18:56:19 09/14/19 23 09/13/2022 CBC/C OMPLE TE BLD COUNT W/DIF F eosinophils 2.0 % 1.0-7. 0 Not Available [facility] (Lab) [address] [place], [address], 09/13/2022 18:56:19 09/14/19 23 09/13/2022 CBC/C OMPLE TE BLD COUNT W/DIF F basophils 0.5 % 0.0-2. 0 Not Available [facility] (Lab) [address] [place], [address], 09/13/2022 18:56:19 09/14/19 23 09/13/2022 CBC/C OMPLE TE BLD COUNT W/DIF F immature granulocytes 0.6 % 0.00-0 .50 high Not Available [facility] (Lab) [address] [place], [address], 09/13/2022 18:56:19 09/14/1909/13/2022 CBC/C OMPLE TE BLD COUNT W/DIF F neutrophils, absolute count 4.44 x10'3 /uL 1.5-8. 0 Not Available [facility] (Lab) [address] [place], [address], 09/13/2022 18:56:19 09/14/19 23 09/13/2022 CBC/C OMPLE TE BLD COUNT W/DIF F lymphocytes, absolute count 3.01 x10'3 /uL 1.07-3 .43 Not Available [facility] (Lab) [address] [place], [address], 09/13/2022 18:56:19 09/14/19 23 09/13/2022 CBC/C OMPLE TE BLD COUNT W/DIF F monocytes, absolute count 0.83 x10'3 /uL 0.29-0 .99 Not Available [facility] (Lab) [address] [place], [address], 09/13/2022 18:56:19 09/14/19 23 09/13/2022 CBC/C OMPLE TE BLD COUNT W/DIF F eosinophils, absolute count 0.17 x10'3 /uL 0.02-0 .53 Not Available [facility] (Lab) [address] [place], [address], 09/13/2022 18:56:19 09/14/19 23 09/13/2022 CBC/C OMPLE TE BLD COUNT W/DIF F basophils, absolute count 0.04 x10'3 /uL 0.01-0 .08 Not Available [facility] (Lab) [address] [place], [address], 09/13/2022 18:56:19 09/14/1909/13/2022 CBC/C OMPLE TE BLD COUNT W/DIF F immature granulocytes ,absolute 0.05 x10'3 /uL 0.00-0 .05 Not Available [facility] (Lab) [address] [place], [address], 09/13/2022 18:56:19 09/14/19 23 09/13/2022 CBC/C OMPLE TE BLD COUNT W/DIF F nucleated red blood cells 0.0 % -0 Not Available [facility] (Lab) [address] [place], [address], 09/13/2022 18:56:19 09/14/1909/13/2022 CBC/C OMPLE TE BLD COUNT W/DIF F NRBC# 0.00 x10'3 /uL Not Available [facility] (Lab) [address] [place], [address], 09/13/2022 18:56:19 09/14/1909/13/2022 LIPID PANEL cholesterol 203 mg/dL 140-19 9 high NIH ZOHRA NSUS RECOM MENDA TION FOR GERSNO STERO L: ADULT CHILD LOW RISK: <200 <170 BORDE RLINE : <200- 239 ----- HIGH RISK: >240 >200 Not Available [facility] (Lab) [address] [place], [address], 09/13/2022 19:02:18 09/14/1909/13/2022 LIPID PANEL triglyceride s 256 mg/dL 0-150 high NIH ZOHRA NSUS REPOR T RECOM MENDA TION FOR TRIGL YCERI ARLYN: ADULT CHILD LOW RISK: <150 ----- BODER LINE: 150-1 99 ----- HIGH RISK: >200 ----- Not Available [facility] (Lab) [address] [place], [address], 09/13/2022 19:02:18 09/14/19 23 09/13/2022 LIPID PANEL HDL cholesterol 54 mg/dL 40- Not Available [facility] (Lab) [address] [place], [address], 09/13/2022 19:02:18 09/14/19 23 09/13/2022 LIPID PANEL [...] WILL NOT BE REPOR CHRIS. Not Available [facility] (Lab) [address] [place], [address], 09/13/2022 19:02:18 09/14/19 23 09/13/2022 COMPR EHENS KARLY METAB OLIC PANEL sodium 138 mmol/ L 137-14 5 Not Available [facility] (Lab) [address] [place], [address], 09/13/2022 19:02:29 09/14/19 23 09/13/2022 COMPR EHENS KARLY METAB OLIC PANEL potassium 4.5 mmol/ L 3.5-5. 1 Not Available [facility] (Lab) [address] [place], [address], 09/13/2022 19:02:29 09/14/19 23 09/13/2022 COMPR EHENS KARLY METAB OLIC PANEL chloride 103 mmol/ L 98-107 Not Available [facility] (Lab) [address] [place], [address], 09/13/2022 19:02:29 09/14/19 23 09/13/2022 COMPR EHENS KARLY METAB OLIC PANEL carbon dioxide 27 mmol/ L 22-30 Not Available [facility] (Lab) [address] [place], [address], 09/13/2022 19:02:29 09/14/19 23 09/13/2022 COMPR EHENS KARLY METAB OLIC PANEL anion gap 12.5 mmol/ L 14-22 low Not Available [facility] (Lab) [address] [place], [address], 09/13/2022 19:02:29 09/14/19 23 09/13/2022 COMPR EHENS KARLY METAB OLIC PANEL glucose 89 mg/dL 70-99 Not Available [facility] (Lab) [address] [place], [address], 09/13/2022 19:02:29 09/14/19 23 09/13/2022 COMPR EHENS KARLY METAB OLIC PANEL BUN 15 mg/dL 8-19 Not Available [facility] (Lab) [address] [place], [address], 09/13/2022 19:02:29 09/14/19 23 09/13/2022 COMPR EHENS KARLY METAB OLIC PANEL creatinine 0.93 mg/dL 0.66-1 .25 Not Available [facility] (Lab) [address] [place], [address], 09/13/2022 19:02:29 09/14/19 23 09/13/2022 COMPR EHENS KARLY METAB OLIC PANEL GFR >60 Refer ence Range : [place] ge GFR Healt hy Adult : >60 [...] or ethni c subgr oups, such as [facility] nics. Outsi de the valid ated angi [...] calcu lator is avail able on the [facility] websi te: [email or web address] :[email or web address] [email or web address] rg/pr ofess ional s/kdo qi/gf r_cal culat or Not Available [facility] (Lab) [address] [place], [address], 09/13/2022 19:02:29 09/14/19 23 09/13/2022 COMPR EHENS KARLY METAB OLIC PANEL alkaline phosphatase 101 U/L 38-126 Not Available [facility] (Lab) [address] [place], [address], 09/13/2022 19:02:29 09/14/19 23 09/13/2022 COMPR EHENS KARLY METAB OLIC PANEL alanine aminotransfe rase 33 U/L 0-50 Not Available [facility] (Lab) [address] [place], [address], 09/13/2022 19:02:29 09/14/19 23 09/13/2022 COMPR EHENS KARLY METAB OLIC PANEL aspartate aminotransfe rase 28 U/L 15-46 Not Available [facility] (Lab) [address] [place], [address], 09/13/2022 19:02:29 09/14/19 23 09/13/2022 COMPR EHENS KARLY METAB OLIC PANEL bilirubin, total 0.50 mg/dL 0.20-1 .30 Not Available [facility] (Lab) [address] [place], [address], 09/13/2022 19:02:29 09/14/19 23 09/13/2022 COMPR EHENS KARLY METAB OLIC PANEL calcium 9.1 mg/dL 8.4-10 .2 Not Available [facility] (Lab) [address] [place], [address], 09/13/2022 19:02:29 09/14/19 23 09/13/2022 COMPR EHENS KARLY METAB OLIC PANEL total protein 7.4 g/dL 6.3-8. 2 Not Available [facility] (Lab) [address] [place], [address], 09/13/2022 19:02:29 09/14/19 23 09/13/2022 COMPR EHENS KARLY METAB OLIC PANEL albumin 4.3 g/dL 3.0-4. 4 Not Available [facility] (Lab) [address] [place], [address], 09/13/2022 19:02:29 09/14/19 23 09/13/2022 COMPR EHENS KARLY METAB OLIC PANEL globulin 3.1 g/dL 2.6-4. 2 Not Available [facility] (Lab) [address] [place], [address], 09/13/2022 19:02:29 09/14/19 23 09/13/2022 COMPR EHENS KARLY METAB OLIC PANEL A/G ratio 1.4 ratio 1.0-2. 0 Not Available [facility] (Lab) [address] [place], [address], 09/13/2022 19:02:29 09/14/19 23 09/13/2022 PSA SCREE N PSA medicare screen 1.14 NG/mL 0.00-4 .00 Not Available [facility] (Lab) [address] [place], [address], 09/13/2022 19:43:06 Result Notes None recorded. Problems Name Problem SNOMED Code Status Onset Date Resolution Date Notes Provider Name and Address Organization Details Recorded Time Pneumonia 703147715 Active Not Available [facility] 3 18:11:50 Gastroesophag eal reflux disease 828271743 Active Not Available [facility] 3 18:11:50 Bronchitis 10158049 Active Not Available [facility] 3 18:11:50 Sinusitis 94697677 Active Not Available [facility] 3 18:11:50 Cough 77321510 Active Not Available [facility] 3 18:11:50 Hypercholeste rolemia 59595531 Active 2022 Khoi Syed MD [address] [place] [address], [facility] [address], [place], [address] , [employer] 3 21:33:50 Problem Notes None recorded. Procedures Surgical History Date Name Laterality Status Provider Name and Address Organization Details Recorded Time Tonsillectomy completed EAGLE Andre [employer] 09/13/2022 14:49:25 Imaging Results None recorded. Procedure [...] Updated DateTime 3 182.88 cm 36.1 kg/m2 339630. 57 g 97.6 [degF] 74 /min 134 mm[Hg] 84 mm[Hg] EAGLE Andre [employer] 3 14:58:24 Date Recorded Body height Body mass index (BMI) Body weight Body temperature Heart rate Systolic blood pressure Diastolic blood pressure Provider Name and Address Organization Details Last Updated DateTime 3 182.88 cm 36.2 kg/m2 564585. 16 g 98.3 [degF] 68 /min 132 mm[Hg] 80 mm[Hg] Vane coleman RN [facility] [employer] 3 11:32:32 Social History Question Answer Notes LastModified by Organization Details LastModified Time Tobacco Smoking Status Current Every Day Smoker cigars EAGLE [facility] [employer] 09/13/2022 14:52:20 Do You Have An Advance Directive? No [email or web address] Information not available 09/13/2022 What Is Your Level Of Alcohol Consumption? Occasional [email or web address] Information not available 09/13/2022 Are You Blind Or Do You Have Difficulty Seeing? Yes Glasses Information not available 04/04/2023 Is Blood Transfusion Acceptable In An Emergency? Yes [email or web address] Information not available 09/13/2022 What Is Your Level Of Caffeine Consumption? Heavy [email or web address] Information not available 09/13/2022 In The 14 Days Before Symptom Onset, Have You Had Close Contact With A Laboratory-confi rmed COVID-19 While That Case Was Ill? No [email or web address] Information not available 09/13/2022 In The 14 Days Before Symptom Onset, Have You Had Close Contact With A Person Who Is Under Investigation For COVID-19 While That Person Was Ill? No [email or web address] Information not available 09/13/2022 Are You Currently Employed? Yes [email or web address] Information not available 09/13/2022 Are You Deaf Or Do You Have Serious Difficulty Hearing? No Information not available 04/04/2023 What Type Of Diet Are You Following? REGULAR Information not available 09/13/2022 What Is The Highest Grade Or Level Of School You Have Completed Or The Highest Degree You Have Received? 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 Yes Brother Passed In May [email or web address] Information not available 09/13/2022 What Is The Fluoride Status Of Your Home? Unknown [email or web address] Information not available 09/13/2022 Do You Use Insect Repellent Routinely? Yes [email or web address] Information not available 09/13/2022 Where Do You Live? [facility] [email or web address] Information not available 09/13/2022 Do You Have A Medical Power Of Green Belt? No [email or web address] Information not available 09/13/2022 What Was The Date Of Your Most Recent Tobacco Screening? 09/13/2022 [email or web address] Information not available 09/13/2022 How Many Children Do You Have? 2 [email or web address] Information not available 09/13/2022 Do You Have Any Pets? No [email or web address] Information not available 09/13/2022 What Is Your Relationship Status? [email or web address] Information not available 09/13/2022 Do You Use Your Seat Belt Or Car Seat Routinely? Yes [email or web address] Information not available 09/13/2022 Do You Have Smoke And Carbon Monoxide Detectors In Your Home? Yes [email or web address] Information not available 09/13/2022 Are You Passively Exposed To Smoke? Yes [email or web address] Information not available 09/13/2022 Are There Any Smokers In Your House? No [email or web address] Information not available 09/13/2022 Do You Feel Stressed (tense, Restless, Nervous, Or Anxious, Or Unable To Sleep At Night)? QC95049-4 [email or web address] Information not available 09/13/2022 Do You Use Any Illicit Or Recreational Drugs? No [email or web address] Information not available 09/13/2022 Do You Use Sunscreen Routinely? Yes [email or web address] Information not available 09/13/2022 How Many Years Have You Smoked Tobacco? 20 [email or web address] Information not available 09/13/2022 Have You Recently Traveled Abroad? No [email or web address] Information not available 09/13/2022 Do You Have Any Dietary Restrictions? No [email or web address] Information not available 09/13/2022 Do You Or Have You Ever Used Any Other Forms Of Tobacco Or Nicotine? No [email or web address] Information not available 09/13/2022 Sex: Unknown Functional [...] 04/04/2023 What is your exercise level? None [email or web address] Information not available 09/13/2022 Mental Status Question Answer Note LastModified by Organization D etails LastModified Time Do you have difficulty concentrating, remembering or making decisions? No Information no t available 04/04/2023 Family History Relationship Description Onset Age of this Age Resolved Age Notes LastModified by Organization Details LastModified Time Mother Family history of malignant neoplasm [email or web address] Not available 03/2023 14:48:52 Mother Rheumatoid arthritis [email or web address] Not available 03/2023 14:48:32 Mother Hypertensive disorder [email or web address] Not available 03/2023 14:48:45 Father Family history of malignant neoplasm Not available 03/2023 14:48:57 Medical History Condition Response KIDNEY DISEASE Y HAVE YOU BEEN HOSPITALIZED OR SEEN IN [facility] IN THE PAST YEAR ? N Immunizations Vaccine Type Date Status Note Provider Nam e and Address Organization Details Recorded Time COVID-19 vaccine, vector-nr, rS-Ad26, PF, 0.5 mL 10/10/2020 completed Not Available [facility] 3 18:11:51 COVID-19, mRNA, LNP-S, PF, 100 mcg/0.5mL dose or 50 mcg/0.25mL dose 07/12/2021 completed Not Available [facility] 3 18:11:51 Past Encounters Encounter ID Performer Location Encounter Start Date Encounter Closed Date Diagnosis/Indication Diagnosis SNOMED-CT Code Diagnosis ICD10 Code Diagnosis Note [id number] Khoi Syed MD [facility] [address] [facility] , [place] [address] 09/13/2022 14:28:49 09/13/2022 16:03:41 Screening for cardiovascular system disease 532221255 Z13.6 Screening for malignant neoplasm of prostate 822197667 Z12.5 Adult heal th examination 615475688 Z00.00 [id number] Khoi Syed MD [facility] Internal Med [address] [place] [address] 04/04/2023 11:06:21 04/04/2023 12:25:41 Hypercholesterolemia 80840057 E78.00 Gastroesop hageal reflux disease 280404192 K21.9 Health Concerns Section Related Observation LastModified by Organization Detai ls LastModified Time None Recorded Concern Status LastModified by Organization Details LastModified Time None Recorded Advance Directives Directive N: Payers Encounter Date Sequence Insurance Name Policy Number Policy Cordero Covered Member ID Cordero Member ID Guarantor Name 09/13/2022 1 [place] Freddy Gabriel [id number] Freddy Dean Gabriel 09/13/2022 2 [place] [id number] Freddy Vacath [id number] Freddy Janerath 04/04/2023 1 [place] Freddy Janerath [id number] 6 Freddy Dean Gabriel 04/04/2023 2 [place] [id number] Freddy Janerath [id number] Freddy Gabriel Notes Date Note Type Note Provider Name and Address Organization Details Recorded Time 09/13/2022 text/html 67-year-old new patient meds none allergies none surgeries none family history dad liver cancer socially does not smoke drinks 12 beers a week retired COVID vaccine 1 booster flu not up-to-date shingles not up-to-date Khoi Syed MD [address], [facility] [address], [place], [address], [employer] 09/15/2022 20:07:15 04/04/2023 text/html Ankle hurt Mildl y elevated cholesterol Khoi Syed MD [address], [address], [place], [address], [employer] 04/14/2023 21:34:31
--- OUTSIDE RECORDS SUMMARY | 2024-09-18 13:32 | XMS_ITS | CONTINUITY OF CARE DOCUMENT ---
Author Name olvin bah Address Unknown Organization [facility] Address [address] [place] [address] [address] [place] [address] Phone [phone] Care Team Providers Care Product Safety Consultant Name Role Phone Eric ALEXIS, Negro Unavailable Khoi Syed DO Unavailable [phone] Khoi Syed DO Unavailable INSURANCE PROVIDERS Payer name Policy type / Coverage type Cameron red constitution party ID [id number] PAY
--- OUTSIDE RECORDS SUMMARY | 2024-09-18 13:32 | XMS_ITS | Data Portability ---
Author Organization [place] - [facility], [facility] Address [address] [place] [address] Care Team Providers Care Float Remover Name Role Phone JANIS RODRÍGUEZ Primary Care Provider Assessment No assessment recorded. Plan of Treatment Reminders Order Date Submit Date Provider Last Modified By Organization Details Last Modified Time Details Appointments None recorded. Lab influenza virus A + B + SARS-CoV-2 (COVID19) Ag panel, rapid IA, upper respiratory specimen 2024 025 [email or web address] [facility], [address] [place] [address], [address], [place], [address], 20:20:37 Referral None recorded. Procedures None recorded. Surgeries None recorded. Imaging None recorded. Medication Orders None recorded. Patient TargetsNo targets recorded. Patient Instructions Encounter Date Encounter Id Patient Instructions Last Modified By Organization Details Last Modified Time 08/26/2024 [id number] influenza (flu): care instructions [email or web address] Not available 08/26/2024 20:20:37 Pt has been give n complete discharge instructions; all questions were answered prior to discharge. [email or web address] Not available 08/26/2024 20:20:41 If your conditio [...] or persist after 48 hours of treatment. Not available 08/26/2024 20:20:48 Reason for Referral None Reported. Results Created Date Observation Date Name Description Value Unit Range Abnormal Flag Note LastModifiedBy Organization Detail LastModifiedTime 08/26/1908/26/2024 influ stiven virus A + B + SARS- CoV-2 (COVI D19) Ag panel , rapid IA, upper respi rator y speci men Flu/COVID-19 Positi ve Flu A Not Available [facility] [place] [address] [facility], [address], [place], [address], 08/26/2024 20:19:59 Result Notes None recorded. Problems Name Problem SNOMED Code Status Onset Date Resolution Date Notes Provider Name and Address Organization Details Recorded Time Kidney disease 74987423 Completed 025 08/26/2024 Leroy Ortiz [facility] 19:57:36 Problem Notes None recorded. Procedures Surgical History Date Name Laterality Status Provider Name and Address Organization Details Recorded Time tonsillectomy completed Leroy Ortiz [facility] 08/26/2024 19:58:06 Imaging Results None recorded. Procedure [...] % 16 /min 182.88 cm 35.9 kg/m2 859696. 98 g 97.8 [degF] 164 mm[Hg] 93 mm[Hg] Leroy Ortiz [facility] 19:56:30 Social History None recorded. Functional Status [...] Polyps N Brain Injury N Heart Attack ([place]) N Diabetes N Anticoagulation therapy N Cardiomyopathy [...] SNOMED-CT Code Diagnosis ICD10 Code Diagnosis Note [id number] Bogdan Arredondo, ORTHOPAEDIC DOCTOR-C [facility] [place] [address] [place] [address], [place] [address] 08/26/2024 19:51:27 08/26/2024 20:25:08 Influenza-like illness 19265223 B34.9 Influenza caused by Influenza A virus 972809500 J09.X2 Pt is outside the opportune window [...] ID Guarantor Name 08/26/2024 2 [place] [id number] Rex Gabriel [id number] Freddy Gabriel 08/26/2024 1 [place] Freddy Gabriel [id number] 6 Freddy Gabriel Notes Date Note Type Note Provider Name and Address Organization Details Recorded Time 08/26/2024 text/html Upper Respirator y SymptomsReported bypatient.Location:formerly [facility], [facility]; nasal Quality:congested Severity:moderate Onset/Timing:date of onset: (08/22/2024) Context:no sick contacts Associated Symptoms:no sputum production; no shortness of breath; no wheezing; no sore throat; no vomiting; no diarrhea; no nausea; no conjunctivitis;fatigue ;headache;malaise Bogdan Arredondo, ORTHOPAEDIC DOCTOR-C [address] [facility], [place], [address], [facility] 08/26/2024 20:21:04
== END 2024-09-18 13:28 | disposition home or self-care (01) ==
LOC: ANHCARD 13:29
PROVIDERS: PCP Internal Medicine; Visit Provider Internal Medicine
DX: I51.89 Other ill-defined heart diseases (principal); I35.8 Other nonrheumatic aortic valve disorders; I34.81 Nonrheumatic mitral (valve) annulus calcification
CPT/HCPCS: 93306

== ENCOUNTER 2024-10-10 07:55 | Outpatient (CLI) | payer MEDICARE, BC, SELFPAY ==
--- OUTSIDE RECORDS SUMMARY | 2024-10-10 08:02 | XMS_ITS | Data Portability ---
Author Organization [place] - [facility], [facility] Address [address] [place] [address] Care Team Providers Care Used Equipment Sales Representative Name Role Phone JANIS RODRÍGUEZ Primary Care Provider [phone] Assessment No assessment recorded. Plan of Treatment Reminders Order Date Submit Date Provider Last Modified By Organization Details Last Modified Time Details Appointments None recorded. Lab influenza virus A + B + SARS-CoV-2 (COVID19) Ag panel, rapid IA, upper respiratory specimen 2024 025 [email or web address] [facility], [address] [place] [address], [address], [place], [address], 20:20:37 Referral None recorded. Procedures None recorded. Surgeries None recorded. Imaging None recorded. Medication Orders None recorded. Patient TargetsNo targets recorded. Patient Instructions Encounter Date Encounter Id Patient Instructions Last Modified By Organization Details Last Modified Time 08/26/2024 [id number] influenza (flu): care instructions [email or web address] Not available 08/26/2024 20:20:37 Pt has been [...] or persist after 48 hours of treatment. [email or web address] Not available 08/26/2024 20:20:48 Reason for Referral None Reported. Results Created Date Observation Date Name Description Value Unit Range Abnormal Flag Note LastModifiedBy Organization Detail LastModifiedTime 08/26/1908/26/2024 influ stiven virus A + B + SARS- CoV-2 (COVI D19) Ag panel , rapid IA, upper respi rator y speci men Flu/COVID-19 Positi ve Flu A Not Available [facility] [place] [address], [address], [place], [address], 08/26/2024 20:19:59 Result Notes None recorded. Problems Name Problem SNOMED Code Status Onset Date Resolution Date Notes Provider Name and Address Organization Details Recorded Time Kidney disease 29727338 Completed 025 08/26/2024 Leroy Ortiz [facility] 19:57:36 Problem Notes None recorded. Procedures Surgical History Date Name Laterality Status Provider Name and Address Organization Details Recorded Time tonsillectomy completed Leroy Ortiz [facility] 08/26/2024 19:58:06 Imaging Results None recorded. [...] % 16 /min 182.88 cm 35.9 kg/m2 930164. 98 g 97.8 [degF] 164 mm[Hg] 93 mm[Hg] Leroy Ortiz [facility] 19:56:30 Social History None recorded. Functional Status None recorded. Mental Status None recorded. Family History Nothing Reported. Medical History Condition Response Coronary Artery Disease N Anxiety/Depression N Gout N Atrial Fibrillation N Colon Cancer N Kidney Stones N Hyperthyroidism N Blood disorders N Breast Cancer N Ostomy N Hypothyroidism N Lung Disease N Glaucoma N COPD N Depression N Peripheral Arterial Disease N Pacemaker N [...] Cholesterol N Liver Disease N Arrhythmia N Schizophrenia N Fibromyalgia N Dialysis N Kidney Disease N Chronic Obstructive Pulmonary Disease N Parkinson's Disease N Migraines N Brain Tumors N ADD/ADHD N Anemia N Multiple Sclerosis N Colon Polyps N Brain Injury N Heart Attack ([place]) N Diabetes N Anticoagulation therapy N Cardiomyopathy N Bleeding Disorder N Heart Murmur N Cerebral Palsy N AIDS/HIV N Congestive Heart Failure (CHF) N Hyperlipidemia N Eczema N Back Problems N Diverticulitis N Dementia N Asthma N Atrial Flutter N Lupus N Psoriasis N Peripheral Vascular Disease N Epilepsy/Seizures N Reflux/GERD N Sleep Apnea N Thyroid Disorder N GERD/Reflux N Hepatitis N Aneurysm N Cirrhosis N Heart Disease N Pulmonary Embolism N Hypertension N Osteoporosis N Autism Spectrum Disorder (ASD) N Past Encounters Encounter ID Performer Location Encounter Start Date Encounter Closed Date Diagnosis/Indication Diagnosis SNOMED-CT Code Diagnosis ICD10 Code Diagnosis Note [id number] Bogdan Arredondo, PHOTO FINISHER-C [facility] [place] [address] [place] [address], [place] [address] 08/26/2024 19:51:27 08/26/2024 20:25:08 Influenza-like illness 86190166 B34.9 Influenza caused by Influenza A virus 273237537 J09.X2 Pt is outside the opportune window [...] ID Guarantor Name 08/26/2024 2 [place] [id number] Rex Gabriel [id number] Freddy Gabriel 08/26/2024 1 [place] Freddy Gabriel [id number] Freddy Gabriel Notes Date Note Type [...] no nausea; no conjunctivitis;fatigue ;headache;malaise Bogdan Arredondo, PHOTO FINISHER-C [address] [facility] [facility], [place], [address], [facility] - [facility] 08/26/2024 20:21:04
--- OUTSIDE RECORDS SUMMARY | 2024-10-10 08:02 | XMS_ITS | Data Portability ---
Author Organization [place] - [facility] [employer], Main Office Address [address] [place] [address] Assessment Encounter Date Assessment Date Assessment LastModified by Organization Details LastModified Time 09/13/2022 09/13/2022 Screenings and immunizations discussed in order were patient agreeable and appropriate blood work 6 month follow-up Not available 09/15/2022 20:06:57 04/04/2023 04/04/2023 Lose weight walk regularly conservative measures for GERD and for cholesterol control see me in 6 months. [email or web address] Not available 04/14/2023 21:34:08 Plan of Treatment Reminders Order Date Submit Date Provider Last Modified By Organization Details Last Modified Time Details Appointments None recorded . Lab PSA, serum or plasma 023 09/14/19 23 [facility], [address] [place], [address], 3 09:43:40 lipid panel, blood 023 09/14/19 23 [facility], [address] [place], [address], 3 09:43:34 CMP, serum or plasma 023 09/14/19 23 [facility], [address] [place], [address], 3 19:02:29 CBC w/ auto diff 023 09/14/19 23 [facility], [address] [place], [address], 3 18:56:19 Referral None recorded . Procedures [...] 8.5 x10'3 /uL 4.2-10 .8 Not Available [facility] (Lab) [address] [place], [address], 09/13/2022 18:56:19 09/14/1909/13/2022 CBC/C OMPLE TE BLD COUNT W/DIF F red blood cells 4.64 x10'6 /uL 4.10-5 .80 Not Available [facility] (Lab) [address] [place], [address], 09/13/2022 18:56:19 09/14/1909/13/2022 CBC/C OMPLE TE BLD COUNT W/DIF F hemoglobin 14.8 g/dL 13.2-1 7.0 Not Available [facility] (Lab) [address] [place], [address], 09/13/2022 18:56:19 09/14/1909/13/2022 CBC/C OMPLE TE BLD COUNT W/DIF F hematocrit 44.4 % 39.3-5 0.0 Not Available [facility] (Lab) [address] [place], [address], 09/13/2022 18:56:19 09/14/1909/13/2022 CBC/C OMPLE TE BLD COUNT W/DIF F mean red cell volume 95.7 fL 80.0-9 7.0 Not Available [facility] (Lab) [address] [place], [address], 09/13/2022 18:56:19 09/14/1909/13/2022 CBC/C OMPLE TE BLD COUNT W/DIF F mean red cell hemoglobin 31.9 pg 27.0-3 3.0 Not Available [facility] (Lab) [address] [place], [address], 09/13/2022 18:56:19 09/14/19 23 09/13/2022 CBC/C OMPLE TE BLD COUNT W/DIF F mean RBC HGB concentratio n 33.3 g/dL 31.0-3 6.0 Not Available [facility] (Lab) [address] [place], [address], 09/13/2022 18:56:19 09/14/1909/13/2022 CBC/C OMPLE TE BLD COUNT W/DIF F red cell distribution width 12.6 % 11.8-1 5.5 Not Available [facility] (Lab) [address] [place], [address], 09/13/2022 18:56:19 09/14/19 23 09/13/2022 CBC/C OMPLE TE BLD COUNT W/DIF F platelets 227 x10'3 /uL 150-40 0 Not Available [facility] (Lab) [address] [place], [address], 09/13/2022 18:56:19 09/14/19 23 09/13/2022 CBC/C OMPLE TE BLD COUNT W/DIF F mean platelet volume 10.1 fL 9.0-12 .4 Not Available [facility] (Lab) [address] [place], [address], 09/13/2022 18:56:19 09/14/1909/13/2022 CBC/C OMPLE TE BLD COUNT W/DIF F neutrophils 52.0 % 39.0-7 2.0 Not Available [facility] (Lab) [address] [place], [address], 09/13/2022 18:56:19 09/14/19 23 09/13/2022 CBC/C OMPLE TE BLD COUNT W/DIF F lymphocytes 35.2 % 16.0-4 7.0 Not Available [facility] (Lab) [address] [place], [address], 09/13/2022 18:56:19 09/14/19 23 09/13/2022 CBC/C OMPLE TE BLD COUNT W/DIF F monocytes 9.7 % 5.0-12 .0 Not Available [facility] (Lab) [address] [place], [address], 09/13/2022 18:56:19 09/14/19 23 09/13/2022 CBC/C OMPLE TE BLD COUNT W/DIF F eosinophils 2.0 % 1.0-7. 0 Not Available [facility] (Lab) [address] [place], [address], 09/13/2022 18:56:19 09/14/19 23 09/13/2022 CBC/C OMPLE TE BLD COUNT W/DIF F basophils 0.5 % 0.0-2. 0 Not Available [facility] (Lab) [address] [place], [address], 09/13/2022 18:56:19 09/14/19 23 09/13/2022 CBC/C OMPLE TE BLD COUNT W/DIF F immature granulocytes 0.6 % 0.00-0 .50 high Not Available [facility] (Lab) [address] [place], [address], 09/13/2022 18:56:19 09/14/1909/13/2022 CBC/C OMPLE TE BLD COUNT W/DIF F neutrophils, absolute count 4.44 x10'3 /uL 1.5-8. 0 Not Available [facility] (Lab) [address] [place], [address], 09/13/2022 18:56:19 09/14/19 23 09/13/2022 CBC/C OMPLE TE BLD COUNT W/DIF F lymphocytes, absolute count 3.01 x10'3 /uL 1.07-3 .43 Not Available [facility] (Lab) [address] [place], [address], 09/13/2022 18:56:19 09/14/19 23 09/13/2022 CBC/C OMPLE TE BLD COUNT W/DIF F monocytes, absolute count 0.83 x10'3 /uL 0.29-0 .99 Not Available [facility] (Lab) [address] [place], [address], 09/13/2022 18:56:19 09/14/19 23 09/13/2022 CBC/C OMPLE TE BLD COUNT W/DIF F eosinophils, absolute count 0.17 x10'3 /uL 0.02-0 .53 Not Available [facility] (Lab) [address] [place], [address], 09/13/2022 18:56:19 09/14/19 23 09/13/2022 CBC/C OMPLE TE BLD COUNT W/DIF F basophils, absolute count 0.04 x10'3 /uL 0.01-0 .08 Not Available [facility] (Lab) [address] [place], [address], 09/13/2022 18:56:19 09/14/1909/13/2022 CBC/C OMPLE TE BLD COUNT W/DIF F immature granulocytes ,absolute 0.05 x10'3 /uL 0.00-0 .05 Not Available [facility] (Lab) [address] [place], [address], 09/13/2022 18:56:19 09/14/19 23 09/13/2022 CBC/C OMPLE TE BLD COUNT W/DIF F nucleated red blood cells 0.0 % -0 Not Available [facility] (Lab) [address] [place], [address], 09/13/2022 18:56:19 09/14/1909/13/2022 CBC/C OMPLE TE BLD COUNT W/DIF F NRBC# 0.00 x10'3 /uL Not Available [facility] (Lab) [address] [place], [address], 09/13/2022 18:56:19 09/14/1909/13/2022 LIPID PANEL cholesterol 203 mg/dL 140-19 9 high NIH ZOHRA NSUS RECOM MENDA TION FOR GERSON STERO L: ADULT CHILD LOW RISK: <200 <170 BORDE RLINE : <200- 239 ----- HIGH RISK: >240 >200 Not Available [facility] (Lab) [address] [place], [address], 09/13/2022 19:02:18 09/14/1909/13/2022 LIPID PANEL triglyceride s 256 mg/dL 0-150 high NIH ZOHRA NSUS REPOR T RECOM MENDA TION FOR TRIGL YCERI ARLYN: ADULT CHILD LOW RISK: <150 ----- BODER LINE: 150-1 99 ----- HIGH RISK: >200 ----- Not Available [facility] (Lab) [address] [place], [address], 09/13/2022 19:02:18 09/14/19 23 09/13/2022 LIPID PANEL HDL cholesterol 54 mg/dL 40- Not Available [facility] (Lab) [address] [place], [address], 09/13/2022 19:02:18 09/14/19 23 09/13/2022 LIPID PANEL [...] WILL NOT BE REPOR CHRIS. Not Available [facility] (Lab) [address] [place], [address], 09/13/2022 19:02:18 09/14/19 23 09/13/2022 COMPR EHENS KARLY METAB OLIC PANEL sodium 138 mmol/ L 137-14 5 Not Available [facility] (Lab) [address] [place], [address], 09/13/2022 19:02:29 09/14/19 23 09/13/2022 COMPR EHENS KARLY METAB OLIC PANEL potassium 4.5 mmol/ L 3.5-5. 1 Not Available [facility] (Lab) [address] [place], [address], 09/13/2022 19:02:29 09/14/19 23 09/13/2022 COMPR EHENS KARLY METAB OLIC PANEL chloride 103 mmol/ L 98-107 Not Available [facility] (Lab) [address] [place], [address], 09/13/2022 19:02:29 09/14/19 23 09/13/2022 COMPR EHENS KARLY METAB OLIC PANEL carbon dioxide 27 mmol/ L 22-30 Not Available [facility] (Lab) [address] [place], [address], 09/13/2022 19:02:29 09/14/19 23 09/13/2022 COMPR EHENS KARLY METAB OLIC PANEL anion gap 12.5 mmol/ L 14-22 low Not Available [facility] (Lab) [address] [place], [address], 09/13/2022 19:02:29 09/14/19 23 09/13/2022 COMPR EHENS KARLY METAB OLIC PANEL glucose 89 mg/dL 70-99 Not Available [facility] (Lab) [address] [place], [address], 09/13/2022 19:02:29 09/14/19 23 09/13/2022 COMPR EHENS KARLY METAB OLIC PANEL BUN 15 mg/dL 8-19 Not Available [facility] (Lab) [address] [place], [address], 09/13/2022 19:02:29 09/14/19 23 09/13/2022 COMPR EHENS KARLY METAB OLIC PANEL creatinine 0.93 mg/dL 0.66-1 .25 Not Available [facility] (Lab) [address] [place], [address], 09/13/2022 19:02:29 09/14/19 23 09/13/2022 COMPR EHENS KARLY METAB OLIC PANEL GFR >60 Refer ence Range : [place] ge GFR Healt hy Adult : >60 [...] or ethni c subgr oups, such as [facility] nics. Outsi de the valid ated [...] calcu lator is avail able on the [facility] websi te: [email or web address] :[email or web address] [email or web address].basil rg/pr ofess ional s/kdo qi/gf r_cal culat or Not Available [facility] (Lab) [address] [place], [address], 09/13/2022 19:02:29 09/14/19 23 09/13/2022 COMPR EHENS KARLY METAB OLIC PANEL alkaline phosphatase 101 U/L 38-126 Not Available [facility] (Lab) [address] [place], [address], 09/13/2022 19:02:29 09/14/19 23 09/13/2022 COMPR EHENS KARLY METAB OLIC PANEL alanine aminotransfe rase 33 U/L 0-50 Not Available [facility] (Lab) [address] [place], [address], 09/13/2022 19:02:29 09/14/19 23 09/13/2022 COMPR EHENS KARLY METAB OLIC PANEL aspartate aminotransfe rase 28 U/L 15-46 Not Available [facility] (Lab) [address] [place], [address], 09/13/2022 19:02:29 09/14/19 23 09/13/2022 COMPR EHENS KARLY METAB OLIC PANEL bilirubin, total 0.50 mg/dL 0.20-1 .30 Not Available [facility] (Lab) [address] [place], [address], 09/13/2022 19:02:29 09/14/19 23 09/13/2022 COMPR EHENS KARLY METAB OLIC PANEL calcium 9.1 mg/dL 8.4-10 .2 Not Available [facility] (Lab) [address] [place], [address], 09/13/2022 19:02:29 09/14/19 23 09/13/2022 COMPR EHENS KARLY METAB OLIC PANEL total protein 7.4 g/dL 6.3-8. 2 Not Available [facility] (Lab) [address] [place], [address], 09/13/2022 19:02:29 09/14/19 23 09/13/2022 COMPR EHENS KARLY METAB OLIC PANEL albumin 4.3 g/dL 3.0-4. 4 Not Available [facility] (Lab) [address] [place], [address], 09/13/2022 19:02:29 09/14/19 23 09/13/2022 COMPR EHENS KARLY METAB OLIC PANEL globulin 3.1 g/dL 2.6-4. 2 Not Available [facility] (Lab) [address] [place], [address], 09/13/2022 19:02:29 09/14/19 23 09/13/2022 COMPR EHENS KARLY METAB OLIC PANEL A/G ratio 1.4 ratio 1.0-2. 0 Not Available [facility] (Lab) [address] [place], [address], 09/13/2022 19:02:29 09/14/19 23 09/13/2022 PSA SCREE N PSA medicare screen 1.14 NG/mL 0.00-4 .00 Not Available [facility] (Lab) [address] [place], [address], 09/13/2022 19:43:06 Result Notes None recorded. Problems Name Problem SNOMED Code Status Onset Date Resolution Date Notes Provider Name and Address Organization Details Recorded Time Pneumonia 649216098 Active Not Available [facility] 3 18:11:50 Gastroesophag eal reflux disease 588195190 Active Not Available [facility] 3 18:11:50 Bronchitis 63110180 Active Not Available [facility] 3 18:11:50 Sinusitis 67487183 Active Not Available [facility] 3 18:11:50 Cough 40173073 Active Not Available [facility] 3 18:11:50 Hypercholeste rolemia 86501733 Active 2022 Khoi Syed MD [address] [place] [address], [facility] [address], [place], [address] , [facility] 3 21:33:50 Problem Notes None recorded. Procedures Surgical History Date Name Laterality Status Provider Name and Address Organization Details Recorded Time Tonsillectomy completed EAGLE Andre ooma 09/13/2022 14:49:25 Imaging Results None recorded. Procedure [...] Updated DateTime 3 182.88 cm 36.1 kg/m2 918570. 57 g 97.6 [degF] 74 /min 134 mm[Hg] 84 mm[Hg] EAGLE Andre ooma 3 14:58:24 Date Recorded Body height Body mass index (BMI) Body weight Body temperature Heart rate Systolic blood pressure Diastolic blood pressure Provider Name and Address Organization Details Last Updated DateTime 3 182.88 cm 36.2 kg/m2 543073. 16 g 98.3 [degF] 68 /min 132 mm[Hg] 80 mm[Hg] Vane coleman RN [facility] [employer] 3 11:32:32 Social History Question Answer Notes LastModified by Organization Details LastModified Time Tobacco Smoking Status Current Every Day Smoker cigars EAGLE Andre ooma 09/13/2022 14:52:20 Do You Have An Advance Directive? No Information not available 09/13/2022 What Is Your Level Of Alcohol Consumption? Occasional [email or web address] Information not available 09/13/2022 Are You Blind Or Do You Have Difficulty Seeing? Yes Glasses Information not available 04/04/2023 Is Blood Transfusion Acceptable In An Emergency? Yes [email or web address] Information not available 09/13/2022 What Is Your Level Of Caffeine Consumption? Heavy [email or web address] Information not available 09/13/2022 In The 14 Days Before Symptom Onset, Have You Had Close Contact With A Laboratory-confi rmed COVID-19 While That Case Was Ill? No [email or web address] Information not available 09/13/2022 In The 14 Days Before Symptom Onset, Have You Had Close Contact With A Person Who Is Under Investigation For COVID-19 While That Person Was Ill? No [email or web address] Information not available 09/13/2022 Are You Currently Employed? Yes [email or web address] Information not available 09/13/2022 Are You Deaf Or Do You Have Serious Difficulty Hearing? No Information not available 04/04/2023 What Type Of Diet Are You Following? REGULAR [email or web address] Information not available 09/13/2022 What Is The Highest Grade Or Level Of School You Have Completed Or The Highest Degree You Have Received? 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 Yes Brother Passed In May [email or web address] Information not available 09/13/2022 What Is The Fluoride Status Of Your Home? Unknown [email or web address] Information not available 09/13/2022 Do You Use Insect Repellent Routinely? Yes [email or web address] Information not available 09/13/2022 Where Do You Live? [facility] Information not available 09/13/2022 Do You Have A Medical Power Of Geospatial Technician? No [email or web address] Information not available 09/13/2022 What Was The Date Of Your Most Recent Tobacco Screening? 09/13/2022 [email or web address] Information not available 09/13/2022 How Many Children Do You Have? 2 [email or web address] Information not available 09/13/2022 Do You Have Any Pets? No [email or web address] Information not available 09/13/2022 What Is Your Relationship Status? [email or web address] Information not available 09/13/2022 Do You Use Your Seat Belt Or Car Seat Routinely? Yes [email or web address] Information not available 09/13/2022 Do You Have Smoke And Carbon Monoxide Detectors In Your Home? Yes [email or web address] Information not available 09/13/2022 Are You Passively Exposed To Smoke? Yes [email or web address] Information not available 09/13/2022 Are There Any Smokers In Your House? No [email or web address] Information not available 09/13/2022 Do You Feel Stressed (tense, Restless, Nervous, Or Anxious, Or Unable To Sleep At Night)? [id number] [email or web address] Information not available 09/13/2022 Do You Use Any Illicit Or Recreational Drugs? No [email or web address] Information not available 09/13/2022 Do You Use Sunscreen Routinely? Yes [email or web address] Information not available 09/13/2022 How Many Years Have You Smoked Tobacco? 20 [email or web address] Information not available 09/13/2022 Have You Recently Traveled Abroad? No [email or web address] Information not available 09/13/2022 Do You Have Any Dietary Restrictions? No [email or web address] Information not available 09/13/2022 Do You Or Have You Ever Used Any Other Forms Of Tobacco Or Nicotine? No [email or web address] Information not available 09/13/2022 Sex: Unknown Functional [...] 04/04/2023 What is your exercise level? None [email or web address] Information not available 09/13/2022 Mental Status Question Answer Note LastModified by Organization D etails LastModified Time Do you have difficulty concentrating, remembering or making decisions? No Information no t available 04/04/2023 Family History Relationship Description Onset Age of this Age Resolved Age Notes LastModified by Organization Details LastModified Time Mother Family history of malignant neoplasm [email or web address] Not available 03/2023 14:48:52 Mother Rheumatoid arthritis [email or web address] Not available 03/2023 14:48:32 Mother Hypertensive disorder [email or web address] Not available 03/2023 14:48:45 Father Family history of malignant neoplasm [email or web address] Not available 03/2023 14:48:57 Medical History Condition Response HAVE YOU BEEN HOSPITALIZED OR SEEN IN [facility] IN THE PAST YEAR ? N KIDNEY DISEASE Y Immunizations Vaccine Type Date Status Note Provider Nam e and Address Organization Details Recorded Time COVID-19 vaccine, vector-nr, rS-Ad26, PF, 0.5 mL 10/10/2020 completed Not Available [facility] 3 18:11:51 COVID-19, mRNA, LNP-S, PF, 100 mcg/0.5mL dose or 50 mcg/0.25mL dose 07/12/2021 completed Not Available [facility] 3 18:11:51 Past Encounters Encounter ID Performer Location Encounter Start Date Encounter Closed Date Diagnosis/Indication Diagnosis SNOMED-CT Code Diagnosis ICD10 Code Diagnosis Note [id number] Khoi Syed MD [facility] [address] [facility] , [place] [address] 09/13/2022 14:28:49 09/13/2022 16:03:41 Screening for cardiovascular system disease 536826102 Z13.6 Screening for malignant neoplasm of prostate 194525586 Z12.5 Adult heal th examination 252864015 Z00.00 [id number] Khoi Syed MD [facility] Internal Med [address] [place] [address] 04/04/2023 11:06:21 04/04/2023 12:25:41 Hypercholesterolemia 47505894 E78.00 Gastroesop hageal reflux disease 946072211 K21.9 Health Concerns Section Related Observation LastModified by Organization Detai ls LastModified Time None Recorded Concern Status LastModified by Organization Details LastModified Time None Recorded Advance Directives Directive N: Payers Encounter Date Sequence Insurance Name Policy Number Policy Cordero Covered Member ID Cordero Member ID Guarantor Name 09/13/2022 1 [place] Freddy Gabriel [id number] Freddy Dean Gabriel 09/13/2022 2 [place] [id number] Freddy Vacath [id number] Freddy Janerath 04/04/2023 1 [place] Freddy Janerath [id number] Freddy Dean Gabriel 04/04/2023 2 [place] [id number] Freddy Janerath [id number] Freddy Gabriel Notes Date Note Type Note Provider Name and Address Organization Details Recorded Time 09/13/2022 text/html 67-year-old new patient meds none allergies none surgeries none family history dad liver cancer socially does not smoke drinks 12 beers a week retired COVID vaccine 1 booster flu not up-to-date shingles not up-to-date Khoi Syed MD [address], [facility] [address], [place], [address], [place] 09/15/2022 20:07:15 04/04/2023 text/html Ankle hurt Mildl y elevated cholesterol Khoi Syed MD [address], [address], [place], [address], [place] 04/14/2023 21:34:31
--- OUTSIDE RECORDS SUMMARY | 2024-10-10 08:02 | XMS_ITS | CONTINUITY OF CARE DOCUMENT ---
Author Name olvin bah Address Unknown Organization [facility] Address [address] [place] [address] Phone [phone] Care Team Providers Care Customer Account Executive Name Role Phone Eric ALEXIS, Negro Unavailable [phone] JANIS RODRÍGUEZ MD Unavailable JANIS RODRÍGUEZ MD Unavailable [phone] PROBLEMS Condition Status Date Provider Notes Cardiovascular screening active Crissy Evans INSURANCE PROVIDERS Payer name Policy type / Coverage type [place] [employer] ID SELF PAY TREATMENT PLAN Date Name CT, Coronary Calcium Score HISTORY OF PROCEDURES Procedure Date Procedure Name Provider Procedure Notes S tatus CT- Coronary CA score Negro Reyes MD completed
[2024-10-10 08:23] LABS: Cholesterol 128 mg/dL (0-200); HDL Direct 51 mg/dL; Triglycerides 107 mg/dL (<150)
[2024-10-10 08:34] LABS: LDL Cholesterol Direct 57 mg/dL
== END 2024-10-10 07:56 | disposition home or self-care (01) ==
LOC: ANHLAB 08:00
PROVIDERS: PCP Internal Medicine; Visit Provider Internal Medicine
DX: I25.10 Atherosclerotic heart disease of native coronary artery without angina pectoris (principal)
CPT/HCPCS: 36415; 80061

== ENCOUNTER 2024-10-27 08:31 | Outpatient (CLI) | payer MEDICARE, BC, SELFPAY ==
--- NOTE | 2024-10-27 | EST_ITS ---
Patient Info Name: Freddy Varela Age: 69 years : 1955 Gender: Male Ht: 72 in Wt: 270 lbs BSA: 2.54 m2 HR: 71 bpm BP: 135 / 62 mmHg Exam Date: 10/27/2024 10:17 AM Exam Location: Echo Lab Patient Status: Outpatient Admit Date: 10/27/2024 Staff Ordering Physician: Kunal, Khoi ALEXIS Attending Provider: Kunal, Khoi ALEXIS Exercise Technologist: Becca Guzman [facility] Exercise Physician: Andrae Mosley DO Exam Type: CA stress liya w NM Study Info A regadenoson stress test was performed. Summary 1. 1. Negative lexiscan stress test for ischemic ST changes by ECG criteria. 2. 2. Stable hemodynamics throughout the test. 3. 3. Nuclear scan to follow and will be reported separately. Please correlate with it. 4. 4. Patient informed of the above results. Protocol: Lexiscan Stress ECG Details Stage: REST Duration (min): 2 min : 7 sec HR (bpm): 70 SBP (mmHg): 135 DBP (mmHg): 62 Stage: REST Duration (min): 18 min : 7 sec HR (bpm): 70 SBP (mmHg): 135 DBP (mmHg): 62 Stage: STAGE 1 Duration (min): 1 min : 0 sec HR (bpm): 84 SBP (mmHg): 135 DBP (mmHg): 62 Stage: RECOVERY Duration (min): 1 min : 0 sec HR (bpm): 77 SBP (mmHg): 147 DBP (mmHg): 75 Stage: RECOVERY Duration (min): 2 min : 0 sec HR (bpm): 75 SBP (mmHg): 147 DBP (mmHg): 75 Stage: RECOVERY Duration (min): 3 min : 0 sec HR (bpm): 73 SBP (mmHg): 130 DBP (mmHg): 80 Stage: RECOVERY Duration (min): 3 min : 3 sec HR (bpm): 73 SBP (mmHg): 130 DBP (mmHg): 80 Rest HR: 70 bpm Peak HR: 85 bpm Rest Sys BP: 135 mmHg Peak Sys BP: 147 mmHg Max Pred HR: 153 bpm % Max Pred HR: 56 % Target HR: 130 bpm Max RPP: 12,495 bpm*mmHg Termination Reason: Completed protocol Cardiac Symptoms: Shortness of breath Total Time: 1 min : 0 sec Rest Schaffer BP: 62 mmHg Peak Schaffer BP: 75 mmHg Total Dose: 0.4 mg Resting ECG Sinus rhythm, frequent PAC's. Stress ECG No ST changes. Arrhythmias None. Report Signatures
--- NOTE | ~2024-10-27 | NM_ITS ---
EXAMINATION: NM liya stress w perfusion DATE: 10/27/2024 11:17 INDICATION: Atherosclerotic coronary artery disease. TECHNIQUE: Rest images were obtained following intravenous administration of 10.8 mCi Tc99m tetrofosm in (Myoview). The patient was infused intravenously with Lexiscan (Regadenoson). Then, 31.3 mCi Tc99m tetrofosmin (Myoview) was administered intravenously, and stress images were obtained. Data was shaggy nstructed into short axis and horizontal and vertical long axis SPECT images. Gated SPECT images were also obtained. COMPARISON: None. FINDINGS: There is no definite reversible or fixed perfusion abnormality to suggest ischemia or infar ction. There is normal left ventricular chamber size, wall motion and ejection fraction. Left ventr icular ejection fraction measures >70%. IMPRESSION: 1. Normal myocardial perfusion at rest and during stress. 2. Left ventricular ejection fraction measuring >70%. Reviewed, dictated and finalized at location A.
--- OUTSIDE RECORDS SUMMARY | 2024-10-27 08:53 | XMS_ITS | Data Portability ---
Author Organization [place] - [facility] [employer], Main Office Address [address] [place] [address] Assessment Encounter Date Assessment Date Assessment LastModified by Organization Details LastModified Time 09/13/2022 09/13/2022 Screenings and immunizations discussed in order were patient agreeable and appropriate blood work 6 month follow-up [email or web address] Not available 09/15/2022 20:06:57 04/04/2023 04/04/2023 Lose weight walk regularly conservative measures for GERD and for cholesterol control see me in 6 months. [email or web address] Not available 04/14/2023 21:34:08 Plan of Treatment Reminders Order Date Submit Date Provider Last Modified By Organization Details Last Modified Time Details Appointments None recorded . Lab PSA, serum or plasma 023 09/14/19 23 [facility], [address] [place], [address], 3 09:43:40 lipid panel, blood 023 09/14/19 23 [facility], [address] [place], [address], 3 09:43:34 CMP, serum or plasma 023 09/14/19 23 [facility], [address] [place], [address], 3 19:02:29 CBC w/ auto diff 023 09/14/19 23 [facility], [address] [place], [address], 3 18:56:19 Referral None recorded . Procedures [...] 8.5 x10'3 /uL 4.2-10 .8 Not Available [facility] (Lab) [address] [place], [address], 09/13/2022 18:56:19 09/14/1909/13/2022 CBC/C OMPLE TE BLD COUNT W/DIF F red blood cells 4.64 x10'6 /uL 4.10-5 .80 Not Available [facility] (Lab) [address] [place], [address], 09/13/2022 18:56:19 09/14/1909/13/2022 CBC/C OMPLE TE BLD COUNT W/DIF F hemoglobin 14.8 g/dL 13.2-1 7.0 Not Available [facility] (Lab) [address] [place], [address], 09/13/2022 18:56:19 09/14/1909/13/2022 CBC/C OMPLE TE BLD COUNT W/DIF F hematocrit 44.4 % 39.3-5 0.0 Not Available [facility] (Lab) [address] [place], [address], 09/13/2022 18:56:19 09/14/1909/13/2022 CBC/C OMPLE TE BLD COUNT W/DIF F mean red cell volume 95.7 fL 80.0-9 7.0 Not Available [facility] (Lab) [address] [place], [address], 09/13/2022 18:56:19 09/14/1909/13/2022 CBC/C OMPLE TE BLD COUNT W/DIF F mean red cell hemoglobin 31.9 pg 27.0-3 3.0 Not Available [facility] (Lab) [address] [place], [address], 09/13/2022 18:56:19 09/14/19 23 09/13/2022 CBC/C OMPLE TE BLD COUNT W/DIF F mean RBC HGB concentratio n 33.3 g/dL 31.0-3 6.0 Not Available [facility] (Lab) [address] [place], [address], 09/13/2022 18:56:19 09/14/1909/13/2022 CBC/C OMPLE TE BLD COUNT W/DIF F red cell distribution width 12.6 % 11.8-1 5.5 Not Available [facility] (Lab) [address] [place], [address], 09/13/2022 18:56:19 09/14/19 23 09/13/2022 CBC/C OMPLE TE BLD COUNT W/DIF F platelets 227 x10'3 /uL 150-40 0 Not Available [facility] (Lab) [address] [place], [address], 09/13/2022 18:56:19 09/14/19 23 09/13/2022 CBC/C OMPLE TE BLD COUNT W/DIF F mean platelet volume 10.1 fL 9.0-12 .4 Not Available [facility] (Lab) [address] [place], [address], 09/13/2022 18:56:19 09/14/1909/13/2022 CBC/C OMPLE TE BLD COUNT W/DIF F neutrophils 52.0 % 39.0-7 2.0 Not Available [facility] (Lab) [address] [place], [address], 09/13/2022 18:56:19 09/14/19 23 09/13/2022 CBC/C OMPLE TE BLD COUNT W/DIF F lymphocytes 35.2 % 16.0-4 7.0 Not Available [facility] (Lab) [address] [place], [address], 09/13/2022 18:56:19 09/14/19 23 09/13/2022 CBC/C OMPLE TE BLD COUNT W/DIF F monocytes 9.7 % 5.0-12 .0 Not Available [facility] (Lab) [address] [place], [address], 09/13/2022 18:56:19 09/14/19 23 09/13/2022 CBC/C OMPLE TE BLD COUNT W/DIF F eosinophils 2.0 % 1.0-7. 0 Not Available [facility] (Lab) [address] [place], [address], 09/13/2022 18:56:19 09/14/19 23 09/13/2022 CBC/C OMPLE TE BLD COUNT W/DIF F basophils 0.5 % 0.0-2. 0 Not Available [facility] (Lab) [address] [place], [address], 09/13/2022 18:56:19 09/14/19 23 09/13/2022 CBC/C OMPLE TE BLD COUNT W/DIF F immature granulocytes 0.6 % 0.00-0 .50 high Not Available [facility] (Lab) [address] [place], [address], 09/13/2022 18:56:19 09/14/1909/13/2022 CBC/C OMPLE TE BLD COUNT W/DIF F neutrophils, absolute count 4.44 x10'3 /uL 1.5-8. 0 Not Available [facility] (Lab) [address] [place], [address], 09/13/2022 18:56:19 09/14/19 23 09/13/2022 CBC/C OMPLE TE BLD COUNT W/DIF F lymphocytes, absolute count 3.01 x10'3 /uL 1.07-3 .43 Not Available [facility] (Lab) [address] [place], [address], 09/13/2022 18:56:19 09/14/19 23 09/13/2022 CBC/C OMPLE TE BLD COUNT W/DIF F monocytes, absolute count 0.83 x10'3 /uL 0.29-0 .99 Not Available [facility] (Lab) [address] [place], [address], 09/13/2022 18:56:19 09/14/19 23 09/13/2022 CBC/C OMPLE TE BLD COUNT W/DIF F eosinophils, absolute count 0.17 x10'3 /uL 0.02-0 .53 Not Available [facility] (Lab) [address] [place], [address], 09/13/2022 18:56:19 09/14/19 23 09/13/2022 CBC/C OMPLE TE BLD COUNT W/DIF F basophils, absolute count 0.04 x10'3 /uL 0.01-0 .08 Not Available [facility] (Lab) [address] [place], [address], 09/13/2022 18:56:19 09/14/1909/13/2022 CBC/C OMPLE TE BLD COUNT W/DIF F immature granulocytes ,absolute 0.05 x10'3 /uL 0.00-0 .05 Not Available [facility] (Lab) [address] [place], [address], 09/13/2022 18:56:19 09/14/19 23 09/13/2022 CBC/C OMPLE TE BLD COUNT W/DIF F nucleated red blood cells 0.0 % -0 Not Available [facility] (Lab) [address] [place], [address], 09/13/2022 18:56:19 09/14/1909/13/2022 CBC/C OMPLE TE BLD COUNT W/DIF F NRBC# 0.00 x10'3 /uL Not Available [facility] (Lab) [address] [place], [address], 09/13/2022 18:56:19 09/14/1909/13/2022 LIPID PANEL cholesterol 203 mg/dL 140-19 9 high NIH OZHRA NSUS RECOM MENDA TION FOR GERSON STERO L: ADULT CHILD LOW RISK: <200 <170 BORDE RLINE : <200- 239 ----- HIGH RISK: >240 >200 Not Available [facility] (Lab) [address] [place], [address], 09/13/2022 19:02:18 09/14/1909/13/2022 LIPID PANEL triglyceride s 256 mg/dL 0-150 high NIH ZOHRA NSUS REPOR T RECOM MENDA TION FOR TRIGL YCERI ARLYN: ADULT CHILD LOW RISK: <150 ----- BODER LINE: 150-1 99 ----- HIGH RISK: >200 ----- Not Available [facility] (Lab) [address] [place], [address], 09/13/2022 19:02:18 09/14/19 23 09/13/2022 LIPID PANEL HDL cholesterol 54 mg/dL 40- Not Available [facility] (Lab) [address] [place], [address], 09/13/2022 19:02:18 09/14/19 23 09/13/2022 LIPID PANEL [...] WILL NOT BE REPOR CHRIS. Not Available [facility] (Lab) [address] [place], [address], 09/13/2022 19:02:18 09/14/19 23 09/13/2022 COMPR EHENS KARLY METAB OLIC PANEL sodium 138 mmol/ L 137-14 5 Not Available [facility] (Lab) [address] [place], [address], 09/13/2022 19:02:29 09/14/19 23 09/13/2022 COMPR EHENS KARLY METAB OLIC PANEL potassium 4.5 mmol/ L 3.5-5. 1 Not Available [facility] (Lab) [address] [place], [address], 09/13/2022 19:02:29 09/14/19 23 09/13/2022 COMPR EHENS KARLY METAB OLIC PANEL chloride 103 mmol/ L 98-107 Not Available [facility] (Lab) [address] [place], [address], 09/13/2022 19:02:29 09/14/19 23 09/13/2022 COMPR EHENS KARLY METAB OLIC PANEL carbon dioxide 27 mmol/ L 22-30 Not Available [facility] (Lab) [address] [place], [address], 09/13/2022 19:02:29 09/14/19 23 09/13/2022 COMPR EHENS KARLY METAB OLIC PANEL anion gap 12.5 mmol/ L 14-22 low Not Available [facility] (Lab) [address] [place], [address], 09/13/2022 19:02:29 09/14/19 23 09/13/2022 COMPR EHENS KARLY METAB OLIC PANEL glucose 89 mg/dL 70-99 Not Available [facility] (Lab) [address] [place], [address], 09/13/2022 19:02:29 09/14/19 23 09/13/2022 COMPR EHENS KARLY METAB OLIC PANEL BUN 15 mg/dL 8-19 Not Available [facility] (Lab) [address] [place], [address], 09/13/2022 19:02:29 09/14/19 23 09/13/2022 COMPR EHENS KARLY METAB OLIC PANEL creatinine 0.93 mg/dL 0.66-1 .25 Not Available [facility] (Lab) [address] [place], [address], 09/13/2022 19:02:29 09/14/19 23 09/13/2022 COMPR EHENS KARLY METAB OLIC PANEL GFR >60 Refer ence Range : Letha ge GFR Healt hy Adult : >60 [...] c subgr oups, such as [facility] nics. Outsi de the valid [...] calcu lator is avail able on the [facility] websi te: https :[email or web address] [email or web address].basil rg/pr ofess ional s/kdo qi/gf r_cal culat or Not Available [facility] (Lab) [address] [place], [address], 09/13/2022 19:02:29 09/14/19 23 09/13/2022 COMPR EHENS KARLY METAB OLIC PANEL alkaline phosphatase 101 U/L 38-126 Not Available [facility] (Lab) [address] [place], [address], 09/13/2022 19:02:29 09/14/19 23 09/13/2022 COMPR EHENS KARLY METAB OLIC PANEL alanine aminotransfe rase 33 U/L 0-50 Not Available [facility] (Lab) [address] [place], [address], 09/13/2022 19:02:29 09/14/19 23 09/13/2022 COMPR EHENS KARLY METAB OLIC PANEL aspartate aminotransfe rase 28 U/L 15-46 Not Available [facility] (Lab) [address] [place], [address], 09/13/2022 19:02:29 09/14/19 23 09/13/2022 COMPR EHENS KARLY METAB OLIC PANEL bilirubin, total 0.50 mg/dL 0.20-1 .30 Not Available [facility] (Lab) [address] [place], [address], 09/13/2022 19:02:29 09/14/19 23 09/13/2022 COMPR EHENS KARLY METAB OLIC PANEL calcium 9.1 mg/dL 8.4-10 .2 Not Available [facility] (Lab) [address] [place], [address], 09/13/2022 19:02:29 09/14/19 23 09/13/2022 COMPR EHENS KARLY METAB OLIC PANEL total protein 7.4 g/dL 6.3-8. 2 Not Available [facility] (Lab) [address] [place], [address], 09/13/2022 19:02:29 09/14/19 23 09/13/2022 COMPR EHENS KARLY METAB OLIC PANEL albumin 4.3 g/dL 3.0-4. 4 Not Available [facility] (Lab) [address] [place], [address], 09/13/2022 19:02:29 09/14/19 23 09/13/2022 COMPR EHENS KARLY METAB OLIC PANEL globulin 3.1 g/dL 2.6-4. 2 Not Available [facility] (Lab) [address] [place], [address], 09/13/2022 19:02:29 09/14/19 23 09/13/2022 COMPR EHENS KARLY METAB OLIC PANEL A/G ratio 1.4 ratio 1.0-2. 0 Not Available [facility] (Lab) [address] [place], [address], 09/13/2022 19:02:29 09/14/19 23 09/13/2022 PSA SCREE N PSA medicare screen 1.14 NG/mL 0.00-4 .00 Not Available [facility] (Lab) [address] [place], [address], 09/13/2022 19:43:06 Result Notes None recorded. Problems Name Problem SNOMED Code Status Onset Date Resolution Date Notes Provider Name and Address Organization Details Recorded Time Pneumonia 831624787 Active Not Available [facility] 3 18:11:50 Gastroesophag eal reflux disease 178913117 Active Not Available [facility] 3 18:11:50 Bronchitis 16835664 Active Not Available [facility] 3 18:11:50 Sinusitis 59316858 Active Not Available [facility] 3 18:11:50 Cough 28681220 Active Not Available [facility] 3 18:11:50 Hypercholeste rolemia 04574241 Active 2022 Khoi Syed MD [address] [place] [address], [facility] [address], [place], [address] , [facility] 3 21:33:50 Problem Notes None recorded. Procedures Surgical History Date Name Laterality Status Provider Name and Address Organization Details Recorded Time Tonsillectomy completed EAG[facility] 09/13/2022 14:49:25 Imaging Results None recorded. Procedure [...] Updated DateTime 3 182.88 cm 36.1 kg/m2 334305. 57 g 97.6 [degF] 74 /min 134 mm[Hg] 84 mm[Hg] EAGLE Andre [facility] [address] 3 14:58:24 Date Recorded Body height Body mass index (BMI) Body weight Body temperature Heart rate Systolic blood pressure Diastolic blood pressure Provider Name and Address Organization Details Last Updated DateTime 3 182.88 cm 36.2 kg/m2 299495. 16 g 98.3 [degF] 68 /min 132 mm[Hg] 80 mm[Hg] Vane coleman RN [facility] [employer] 3 11:32:32 Social History Question Answer Notes LastModified by Organization Details LastModified Time Tobacco Smoking Status Current Every Day Smoker cigars E[facility] [address] 09/13/2022 14:52:20 Do You Have An Advance Directive? No [email or web address] Information not available 09/13/2022 What Is Your Level Of Alcohol Consumption? Occasional [email or web address] Information not available 09/13/2022 Are You Blind Or Do You Have Difficulty Seeing? Yes Glasses Information not available 04/04/2023 Is Blood Transfusion Acceptable In An Emergency? Yes [email or web address] Information not available 09/13/2022 What Is Your Level Of Caffeine Consumption? Heavy [email or web address] Information not available 09/13/2022 In The 14 Days Before Symptom Onset, Have You Had Close Contact With A Laboratory-confi rmed COVID-19 While That Case Was Ill? No [email or web address] Information not available 09/13/2022 In The 14 Days Before Symptom Onset, Have You Had Close Contact With A Person Who Is Under Investigation For COVID-19 While That Person Was Ill? No [email or web address] Information not available 09/13/2022 Are You Currently Employed? Yes [email or web address] Information not available 09/13/2022 Are You Deaf Or Do You Have Serious Difficulty Hearing? No Information not available 04/04/2023 What Type Of Diet Are You Following? REGULAR [email or web address] Information not available 09/13/2022 What Is The Highest Grade Or Level Of School You Have Completed Or The Highest Degree You Have Received? 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 Yes Brother Passed In May [email or web address] Information not available 09/13/2022 What Is The Fluoride Status Of Your Home? Unknown [email or web address] Information not available 09/13/2022 Do You Use Insect Repellent Routinely? Yes [email or web address] Information not available 09/13/2022 Where [facility] You Live? [facility] [email or web address] Information not available 09/13/2022 Do You Have A Medical Power Of Log Yard Derrick Operator? No [email or web address] Information not available 09/13/2022 What Was The Date Of Your Most Recent Tobacco Screening? 09/13/2022 [email or web address] Information not available 09/13/2022 How Many Children Do You Have? 2 [email or web address] Information not available 09/13/2022 Do You Have Any Pets? No [email or web address] Information not available 09/13/2022 What Is Your Relationship Status? [email or web address] Information not available 09/13/2022 Do You Use Your Seat Belt Or Car Seat Routinely? Yes [email or web address] Information not available 09/13/2022 Do You Have Smoke And Carbon Monoxide Detectors In Your Home? Yes [email or web address] Information not available 09/13/2022 Are You Passively Exposed To Smoke? Yes [email or web address] Information not available 09/13/2022 Are There Any Smokers In Your House? No [email or web address] Information not available 09/13/2022 Do You Feel Stressed (tense, Restless, Nervous, Or Anxious, Or Unable To Sleep At Night)? [id number] [email or web address] Information not available 09/13/2022 Do You Use Any Illicit Or Recreational Drugs? No [email or web address] Information not available 09/13/2022 Do You Use Sunscreen Routinely? Yes [email or web address] Information not available 09/13/2022 How Many Years Have You Smoked Tobacco? 20 Information not available 09/13/2022 Have You Recently Traveled Abroad? No [email or web address] Information not available 09/13/2022 Do You Have Any Dietary Restrictions? No [email or web address] Information not available 09/13/2022 Do You Or Have You Ever Used Any Other Forms Of Tobacco Or Nicotine? No [email or web address] Information not available 09/13/2022 Sex: Unknown Functional [...] 04/04/2023 What is your exercise level? None [email or web address] Information not available 09/13/2022 Mental Status Question Answer Note LastModified by Organization D etails LastModified Time Do you have difficulty concentrating, remembering or making decisions? No Information no t available 04/04/2023 Family History Relationship Description Onset Age of this Age Resolved Age Notes LastModified by Organization Details LastModified Time Mother Family history of malignant neoplasm [email or web address] Not available 03/2023 14:48:52 Mother Rheumatoid arthritis [email or web address] Not available 03/2023 14:48:32 Mother Hypertensive disorder [email or web address] Not available 03/2023 14:48:45 Father Family history of malignant neoplasm [email or web address] Not available 03/2023 14:48:57 Medical History Condition Response KIDNEY DISEASE Y HAVE YOU BEEN HOSPITALIZED OR SEEN IN [facility] IN THE PAST YEAR ? N Immunizations Vaccine Type Date Status Note Provider Nam e and Address Organization Details Recorded Time COVID-19 vaccine, vector-nr, rS-Ad26, PF, 0.5 mL 10/10/2020 completed Not Available [facility] 3 18:11:51 COVID-19, mRNA, LNP-S, PF, 100 mcg/0.5mL dose or 50 mcg/0.25mL dose 07/12/2021 completed Not Available [facility] 3 18:11:51 Past Encounters Encounter ID Performer Location Encounter Start Date Encounter Closed Date Diagnosis/Indication Diagnosis SNOMED-CT Code Diagnosis ICD10 Code Diagnosis Note [id number] Khoi Syed MD [facility] [address] [address] [facility] , [place] [address] 09/13/2022 14:28:49 09/13/2022 16:03:41 Screening for cardiovascular system disease 634196650 Z13.6 Screening for malignant neoplasm of prostate 404346631 Z12.5 Adult heal th examination 448721689 Z00.00 [id number] hKoi Syed MD [facility] [address] [place] [address] 04/04/2023 11:06:21 04/04/2023 12:25:41 Hypercholesterolemia 08645572 E78.00 Gastroesop hageal reflux disease 345700818 K21.9 Health Concerns Section Related Observation LastModified by Organization Detai ls LastModified Time None Recorded Concern Status LastModified by Organization Details LastModified Time None Recorded Advance Directives Directive N: Payers Encounter Date Sequence Insurance Name Policy Number Policy Cordero Covered Member ID Cordero Member ID Guarantor Name 09/13/2022 1 [place] Freddy Gabriel [id number] Freddy Dean Gabriel 09/13/2022 2 [place] [id number] Freddy Vacath [id number] Freddy Janerath 04/04/2023 1 [place] Freddy Janerath [id number] Freddy Dean Gabriel 04/04/2023 2 [place] [id number] Freddy Janerath [id number] Freddy Gabriel Notes Date Note Type Note Provider Name and Address Organization Details Recorded Time 09/13/2022 text/html 67-year-old new patient meds none allergies none surgeries none family history dad liver cancer socially does not smoke drinks 12 beers a week retired COVID vaccine 1 booster flu not up-to-date shingles not up-to-date Khoi ySed MD [address], [facility] [address], [place], [address], [employer] 09/15/2022 20:07:15 04/04/2023 text/html Ankle hurt Mildl y elevated cholesterol Khoi Syed MD [address], [address], [place], [address], [employer] 04/14/2023 21:34:31
--- OUTSIDE RECORDS SUMMARY | 2024-10-27 08:53 | XMS_ITS | Data Portability ---
Author Organization [place] - [facility], [facility] Address [address] [place] [address] Care Team Providers Care Personal Care Home Administrator Name Role Phone JANIS RODRÍGUEZ Primary Care Provider Assessment No assessment recorded. Plan of Treatment Reminders Order Date Submit Date Provider Last Modified By Organization Details Last Modified Time Details Appointments None recorded. Lab influenza virus A + B + SARS-CoV-2 (COVID19) Ag panel, rapid IA, upper respiratory specimen 2024 025 [email or web address] [facility], [address] [place] [address], [address], [place], [address], 20:20:37 Referral None recorded. Procedures None recorded. Surgeries None recorded. Imaging None recorded. Medication Orders None recorded. Patient TargetsNo targets recorded. Patient Instructions Encounter Date Encounter Id Patient Instructions Last Modified By Organization Details Last Modified Time 08/26/2024 [id number] influenza (flu): care instructions [email or web address] Not available 08/26/2024 20:20:37 Pt has been give n complete discharge instructions; all questions were answered prior to discharge. [email or web address] Not available 08/26/2024 20:20:41 If your conditio [...] or persist after 48 hours of treatment. [email or web address] Not available 08/26/2024 20:20:48 Reason for Referral None Reported. Results Created Date Observation Date Name Description Value Unit Range Abnormal Flag Note LastModifiedBy Organization Detail LastModifiedTime 08/26/1908/26/2024 influ stiven virus A + B + SARS- CoV-2 (COVI D19) Ag panel , rapid IA, upper respi rator y speci men Flu/COVID-19 Positi ve Flu A Not Available [facility] [place] [address], [address], [place], [address], 08/26/2024 20:19:59 Result Notes None recorded. Problems Name Problem SNOMED Code Status Onset Date Resolution Date Notes Provider Name and Address Organization Details Recorded Time Kidney disease [id number] Completed 025 08/26/2024 Leroy Ortiz [facility] 19:57:36 Problem Notes None recorded. Procedures [...] % 16 /min 182.88 cm 35.9 kg/m2 464845. 98 g 97.8 [degF] 164 mm[Hg] 93 mm[Hg] Leroy Ortiz [facility] 19:56:30 Social History None recorded. Functional Status None recorded. Mental Status None recorded. Family History Nothing Reported. Medical History Condition Response Coronary Artery Disease N Gout N Anxiety/Depression N Atrial Fibrillation N Colon Cancer N Kidney Stones N Hyperthyroidism N Blood disorders N Breast Cancer N Ostomy N COPD N Depression N Lung Disease N Hypothyroidism N Glaucoma N Pacemaker N Peripheral Arterial Disease N Clotting Disorder N Prostate Problems N Diverticulitis/Diverticulosis N Paralysis N Lung Mass N Deep Vein Thrombosis N Obstructive Sleep Apnea N Anxiety Disorder N Cystic Fibrosis N Autoimmune disease N Arthritis N Blood Clot N Developmental Problems N Cancer N Stroke N Crohn's Disease N Chronic Kidney Disease N Endometriosis N Bladder or Kidney Problems N High Cholesterol N Liver Disease N Arrhythmia N Fibromyalgia N Schizophrenia N Dialysis N Kidney Disease N Chronic Obstructive Pulmonary Disease N Parkinson's Disease N Migraines N Brain Tumors N ADD/ADHD N Anemia N Multiple Sclerosis N Colon Polyps N Brain Injury N Heart Attack (MA) N Diabetes N Anticoagulation therapy N Cardiomyopathy N Bleeding Disorder N Heart Murmur N Cerebral Palsy N AIDS/HIV N Congestive Heart Failure (CHF) N Hyperlipidemia N Eczema N Back Problems N Diverticulitis N Dementia N Asthma N Atrial Flutter N Lupus N Psoriasis N Epilepsy/Seizures N Peripheral Vascular Disease N Reflux/GERD N Sleep Apnea N GERD/Reflux N Thyroid Disorder N Aneurysm N Hepatitis N Cirrhosis N Heart Disease N Pulmonary Embolism N Hypertension N Autism Spectrum Disorder (ASD) N Osteoporosis N Past Encounters Encounter ID Performer Location Encounter Start Date Encounter Closed Date Diagnosis/Indication Diagnosis SNOMED-CT Code Diagnosis ICD10 Code Diagnosis Note [id number] Bogdan Arredondo, PUMP ATTENDANT-C [facility] [place] [address] [place] [address], [place] [address] 08/26/2024 19:51:27 08/26/2024 20:25:08 Influenza-like illness 31079421 B34.9 Influenza caused by Influenza A virus [id number] J09.X2 Pt is outside the opportune window [...] ID Guarantor Name 08/26/2024 2 [place] [id number] Rex Gabriel [id number] Freddy Gabriel 08/26/2024 1 [place] Freddy Gabriel [id number] Freddy Gabriel Notes Date Note Type Note Provider Name and Address Organization Details Recorded Time 08/26/2024 text/html Upper Respirator y SymptomsReported bypatient.Location[facility]; nasal Quality:congested Severity:moderate Onset/Timing:date of onset: (08/22/2024) Context:no sick contacts Associated Symptoms:no sputum production; no shortness of breath; no wheezing; no sore throat; no vomiting; no diarrhea; no nausea; no conjunctivitis;fatigue ;headache;malaise Bogdan Arredondo, PUMP ATTENDANT-C [address] [facility], [place], [address], [facility] 08/26/2024 20:21:04
--- OUTSIDE RECORDS SUMMARY | 2024-10-27 08:53 | XMS_ITS | CONTINUITY OF CARE DOCUMENT ---
Author Name olvin bah Address Unknown Organization [facility] Address [address] [place] [address] Phone [phone] Care Team Providers Care Salesperson Terrazzo Tiles Name Role Phone Eric ALEXIS, Negro Unavailable [phone] JANIS RODRÍGUEZ MD Unavailable JANIS RODRÍGUEZ MD Unavailable PROBLEMS Condition Status Date Provider Notes Cardiovascular screening active Crissy Evans INSURANCE PROVID[employer] Payer name Policy type / Coverage type [place] [employer] party ID SELF PAY TREATMENT PLAN Date Name CT, Coronary Calcium Score HISTORY OF PROCEDURES Procedure Date Procedure Name Provider Procedure Notes S tatus CT- Coronary CA score Negro Reyes MD completed
== END 2024-10-27 08:32 | disposition home or self-care (01) ==
PROVIDERS: PCP Internal Medicine; Visit Provider Internal Medicine
DX: I25.10 Atherosclerotic heart disease of native coronary artery without angina pectoris (principal)
CPT/HCPCS: 78452; 93017; A9502; J2785

== ENCOUNTER 2024-12-01 07:36 | Outpatient (CLI) | payer MEDICARE, BC, SELFPAY ==
--- OUTSIDE RECORDS SUMMARY | 2024-12-01 07:41 | XMS_ITS | CONTINUITY OF CARE DOCUMENT ---
Author Name olvin bah Address Unknown Organization [facility] Address [address] [place] [address] Phone [phone] Care Team Providers Care Assistant Brand Manager Name Role Phone Eric ALEXIS, Negro Unavailable [phone] JANIS RODRÍGUEZ MD Unavailable JANIS RODRÍGUEZ MD Unavailable [phone] PROBLEMS Condition Status Date Provider Notes Cardiovascular screening active Crissy Evans [employer]ANCE PROVIDERS Payer name Policy type / Coverage type [employer] party ID SELF PAY TREATMENT PLAN Date Name CT, Coronary Calcium Score HISTORY OF PROCEDURES Procedure Date Procedure Name Provider Procedure Notes S tatus CT- Coronary CA score Negro Reyes MD completed
--- OUTSIDE RECORDS SUMMARY | 2024-12-01 07:41 | XMS_ITS | Data Portability ---
Author Organization [place] - [facility] [employer], Main Office Address [address] [place] [address] Assessment Encounter Date Assessment Date Assessment LastModified by Organization Details LastModified Time 09/13/2022 09/13/2022 Screenings and immunizations discussed in order were patient agreeable and appropriate blood work 6 month follow-up [email or web address] Not available 09/15/2022 20:06:57 04/04/2023 04/04/2023 Lose weight walk regularly conservative measures for GERD and for cholesterol control see me in 6 months. [email or web address] Not available 04/14/2023 21:34:08 Plan of Treatment Reminders Order Date Submit Date Provider Last Modified By Organization Details Last Modified Time Details Appointments None recorded . Lab PSA, serum or plasma 023 09/14/19 23 [facility], [address] [place], [address], 3 09:43:40 lipid panel, blood 023 09/14/19 23 [facility], [address] [place], [address], 3 09:43:34 CMP, serum or plasma 023 09/14/19 23 [facility], [address] [place], [address], 3 19:02:29 CBC w/ auto diff 023 09/14/19 23 [facility], [address] [place], [address], 3 18:56:19 Referral None recorded . Procedures [...] 8.5 x10'3 /uL 4.2-10 .8 Not Available [facility] (Lab) [address] [place], [address], 09/13/2022 18:56:19 09/14/1909/13/2022 CBC/C OMPLE TE BLD COUNT W/DIF F red blood cells 4.64 x10'6 /uL 4.10-5 .80 Not Available [facility] (Lab) [address] [place], [address], 09/13/2022 18:56:19 09/14/1909/13/2022 CBC/C OMPLE TE BLD COUNT W/DIF F hemoglobin 14.8 g/dL 13.2-1 7.0 Not Available [facility] (Lab) [address] [place], [address], 09/13/2022 18:56:19 09/14/1909/13/2022 CBC/C OMPLE TE BLD COUNT W/DIF F hematocrit 44.4 % 39.3-5 0.0 Not Available [facility] (Lab) [address] [place], [address], 09/13/2022 18:56:19 09/14/1909/13/2022 CBC/C OMPLE TE BLD COUNT W/DIF F mean red cell volume 95.7 fL 80.0-9 7.0 Not Available [facility] (Lab) [address] [place], [address], 09/13/2022 18:56:19 09/14/1909/13/2022 CBC/C OMPLE TE BLD COUNT W/DIF F mean red cell hemoglobin 31.9 pg 27.0-3 3.0 Not Available [facility] (Lab) [address] [place], [address], 09/13/2022 18:56:19 09/14/19 23 09/13/2022 CBC/C OMPLE TE BLD COUNT W/DIF F mean RBC HGB concentratio n 33.3 g/dL 31.0-3 6.0 Not Available [facility] (Lab) [address] [place], [address], 09/13/2022 18:56:19 09/14/1909/13/2022 CBC/C OMPLE TE BLD COUNT W/DIF F red cell distribution width 12.6 % 11.8-1 5.5 Not Available [facility] (Lab) [address] [place], [address], 09/13/2022 18:56:19 09/14/19 23 09/13/2022 CBC/C OMPLE TE BLD COUNT W/DIF F platelets 227 x10'3 /uL 150-40 0 Not Available [facility] (Lab) [address] [place], [address], 09/13/2022 18:56:19 09/14/19 23 09/13/2022 CBC/C OMPLE TE BLD COUNT W/DIF F mean platelet volume 10.1 fL 9.0-12 .4 Not Available [facility] (Lab) [address] [place], [address], 09/13/2022 18:56:19 09/14/1909/13/2022 CBC/C OMPLE TE BLD COUNT W/DIF F neutrophils 52.0 % 39.0-7 2.0 Not Available [facility] (Lab) [address] [place], [address], 09/13/2022 18:56:19 09/14/19 23 09/13/2022 CBC/C OMPLE TE BLD COUNT W/DIF F lymphocytes 35.2 % 16.0-4 7.0 Not Available [facility] (Lab) [address] [place], [address], 09/13/2022 18:56:19 09/14/19 23 09/13/2022 CBC/C OMPLE TE BLD COUNT W/DIF F monocytes 9.7 % 5.0-12 .0 Not Available [facility] (Lab) [address] [place], [address], 09/13/2022 18:56:19 09/14/19 23 09/13/2022 CBC/C OMPLE TE BLD COUNT W/DIF F eosinophils 2.0 % 1.0-7. 0 Not Available [facility] (Lab) [address] [place], [address], 09/13/2022 18:56:19 09/14/19 23 09/13/2022 CBC/C OMPLE TE BLD COUNT W/DIF F basophils 0.5 % 0.0-2. 0 Not Available [facility] (Lab) [address] [place], [address], 09/13/2022 18:56:19 09/14/19 23 09/13/2022 CBC/C OMPLE TE BLD COUNT W/DIF F immature granulocytes 0.6 % 0.00-0 .50 high Not Available [facility] (Lab) [address] [place], [address], 09/13/2022 18:56:19 09/14/1909/13/2022 CBC/C OMPLE TE BLD COUNT W/DIF F neutrophils, absolute count 4.44 x10'3 /uL 1.5-8. 0 Not Available [facility] (Lab) [address] [place], [address], 09/13/2022 18:56:19 09/14/19 23 09/13/2022 CBC/C OMPLE TE BLD COUNT W/DIF F lymphocytes, absolute count 3.01 x10'3 /uL 1.07-3 .43 Not Available [facility] (Lab) [address] [place], [address], 09/13/2022 18:56:19 09/14/19 23 09/13/2022 CBC/C OMPLE TE BLD COUNT W/DIF F monocytes, absolute count 0.83 x10'3 /uL 0.29-0 .99 Not Available [facility] (Lab) [address] [place], [address], 09/13/2022 18:56:19 09/14/19 23 09/13/2022 CBC/C OMPLE TE BLD COUNT W/DIF F eosinophils, absolute count 0.17 x10'3 /uL 0.02-0 .53 Not Available [facility] (Lab) [address] [place], [address], 09/13/2022 18:56:19 09/14/19 23 09/13/2022 CBC/C OMPLE TE BLD COUNT W/DIF F basophils, absolute count 0.04 x10'3 /uL 0.01-0 .08 Not Available [facility] (Lab) [address] [place], [address], 09/13/2022 18:56:19 09/14/1909/13/2022 CBC/C OMPLE TE BLD COUNT W/DIF F immature granulocytes ,absolute 0.05 x10'3 /uL 0.00-0 .05 Not Available [facility] (Lab) [address] [place], [address], 09/13/2022 18:56:19 09/14/19 23 09/13/2022 CBC/C OMPLE TE BLD COUNT W/DIF F nucleated red blood cells 0.0 % -0 Not Available [facility] (Lab) [address] [place], [address], 09/13/2022 18:56:19 09/14/1909/13/2022 CBC/C OMPLE TE BLD COUNT W/DIF F NRBC# 0.00 x10'3 /uL Not Available [facility] (Lab) [address] [place], [address], 09/13/2022 18:56:19 09/14/1909/13/2022 LIPID PANEL cholesterol 203 mg/dL 140-19 9 high NIH ZOHRA NSUS RECOM MENDA TION FOR GERSON STERO L: ADULT CHILD LOW RISK: <200 <170 BORDE RLINE : <200- 239 ----- HIGH RISK: >240 >200 Not Available [facility] (Lab) [address] [place], [address], 09/13/2022 19:02:18 09/14/1909/13/2022 LIPID PANEL triglyceride s 256 mg/dL 0-150 high NIH ZOHRA NSUS REPOR T RECOM MENDA TION FOR TRIGL YCERI ARLYN: ADULT CHILD LOW RISK: <150 ----- BODER LINE: 150-1 99 ----- HIGH RISK: >200 ----- Not Available [facility] (Lab) [address] [place], [address], 09/13/2022 19:02:18 09/14/19 23 09/13/2022 LIPID PANEL HDL cholesterol 54 mg/dL 40- Not Available [facility] (Lab) [address] [place], [address], 09/13/2022 19:02:18 09/14/19 23 09/13/2022 LIPID PANEL [...] WILL NOT BE REPOR CHRIS. Not Available [facility] (Lab) [address] [place], [address], 09/13/2022 19:02:18 09/14/19 23 09/13/2022 COMPR EHENS KARLY METAB OLIC PANEL sodium 138 mmol/ L 137-14 5 Not Available [facility] (Lab) [address] [place], [address], 09/13/2022 19:02:29 09/14/19 23 09/13/2022 COMPR EHENS KARLY METAB OLIC PANEL potassium 4.5 mmol/ L 3.5-5. 1 Not Available [facility] (Lab) [address] [place], [address], 09/13/2022 19:02:29 09/14/19 23 09/13/2022 COMPR EHENS KARLY METAB OLIC PANEL chloride 103 mmol/ L 98-107 Not Available [facility] (Lab) [address] [place], [address], 09/13/2022 19:02:29 09/14/19 23 09/13/2022 COMPR EHENS KARLY METAB OLIC PANEL carbon dioxide 27 mmol/ L 22-30 Not Available [facility] (Lab) [address] [place], [address], 09/13/2022 19:02:29 09/14/19 23 09/13/2022 COMPR EHENS KARLY METAB OLIC PANEL anion gap 12.5 mmol/ L 14-22 low Not Available [facility] (Lab) [address] [place], [address], 09/13/2022 19:02:29 09/14/19 23 09/13/2022 COMPR EHENS KARLY METAB OLIC PANEL glucose 89 mg/dL 70-99 Not Available [facility] (Lab) [address] [place], [address], 09/13/2022 19:02:29 09/14/19 23 09/13/2022 COMPR EHENS KARLY METAB OLIC PANEL BUN 15 mg/dL 8-19 Not Available [facility] (Lab) [address] [place], [address], 09/13/2022 19:02:29 09/14/19 23 09/13/2022 COMPR EHENS KARLY METAB OLIC PANEL creatinine 0.93 mg/dL 0.66-1 .25 Not Available [facility] (Lab) [address] [place], [address], 09/13/2022 19:02:29 09/14/19 23 09/13/2022 COMPR EHENS KARLY METAB OLIC PANEL GFR >60 Refer ence Range : [place] ge GFR Healt hy Adult : >60 [...] c subgr oups, such as [facility] nics. Outsi de the valid [...] calcu lator is avail able on the [facility] websi te: [email or web address] :[email or web address] [email or web address] rg/pr ofess ional s/kdo qi/gf r_cal culat or Not Available [facility] (Lab) [address] [place], [address], 09/13/2022 19:02:29 09/14/19 23 09/13/2022 COMPR EHENS KARLY METAB OLIC PANEL alkaline phosphatase 101 U/L 38-126 Not Available [facility] (Lab) [address] [place], [address], 09/13/2022 19:02:29 09/14/19 23 09/13/2022 COMPR EHENS KARLY METAB OLIC PANEL alanine aminotransfe rase 33 U/L 0-50 Not Available [facility] (Lab) [address] [place], [address], 09/13/2022 19:02:29 09/14/19 23 09/13/2022 COMPR EHENS KARLY METAB OLIC PANEL aspartate aminotransfe rase 28 U/L 15-46 Not Available [facility] (Lab) [address] [place], [address], 09/13/2022 19:02:29 09/14/19 23 09/13/2022 COMPR EHENS KARLY METAB OLIC PANEL bilirubin, total 0.50 mg/dL 0.20-1 .30 Not Available [facility] (Lab) [address] [place], [address], 09/13/2022 19:02:29 09/14/19 23 09/13/2022 COMPR EHENS KARLY METAB OLIC PANEL calcium 9.1 mg/dL 8.4-10 .2 Not Available [facility] (Lab) [address] [place], [address], 09/13/2022 19:02:29 09/14/19 23 09/13/2022 COMPR EHENS KARLY METAB OLIC PANEL total protein 7.4 g/dL 6.3-8. 2 Not Available [facility] (Lab) [address] [place], [address], 09/13/2022 19:02:29 09/14/19 23 09/13/2022 COMPR EHENS KARLY METAB OLIC PANEL albumin 4.3 g/dL 3.0-4. 4 Not Available [facility] (Lab) [address] [place], [address], 09/13/2022 19:02:29 09/14/19 23 09/13/2022 COMPR EHENS KARLY METAB OLIC PANEL globulin 3.1 g/dL 2.6-4. 2 Not Available [facility] (Lab) [address] [place], [address], 09/13/2022 19:02:29 09/14/19 23 09/13/2022 COMPR EHENS KARLY METAB OLIC PANEL A/G ratio 1.4 ratio 1.0-2. 0 Not Available [facility] (Lab) [address] [place], [address], 09/13/2022 19:02:29 09/14/19 23 09/13/2022 PSA SCREE N PSA medicare screen 1.14 NG/mL 0.00-4 .00 Not Available [facility] (Lab) [address] [place], [address], 09/13/2022 19:43:06 Result Notes None recorded. Problems Name Problem SNOMED Code Status Onset Date Resolution Date Notes Provider Name and Address Organization Details Recorded Time Pneumonia 046933918 Active Not Available [facility] 3 18:11:50 Gastroesophag eal reflux disease 816939033 Active Not Available [facility] 3 18:11:50 Bronchitis 37782263 Active Not Available [facility] 3 18:11:50 Sinusitis 78879179 Active Not Available [facility] 3 18:11:50 Cough 08036610 Active Not Available [facility] 3 18:11:50 Hypercholeste rolemia 94513892 Active 2022 Khoi Syed MD [address] [place] [address], [facility] [address], [place], [address] , [facility] [employer] [facility] [employer] 3 21:33:50 Problem Notes None recorded. Procedures Surgical History Date Name Laterality Status Provider Name and Address Organization Details Recorded Time Tonsillectomy completed EAGLE Andre [employer] [facility] [employer] 09/13/2022 14:49:25 Imaging Results None recorded. Procedure [...] Body weight Body temperature Heart rate Systolic And Diastolic Provider Name and Address Organization Details Last Updated DateTime 3 182.88 cm 36.1 kg/m2 850926. 57 g 97.6 [degF] 74 /min 134/84 mm[Hg] EAGLE Andre [employer] [facility] [employer] 3 14:58:24 Date Recorded Body height Body mass index (BMI) Body weight Body temperature Heart rate Systolic And Diastolic Provider Name and Address Organization Details Last Updated DateTime 3 182.88 cm 36.2 kg/m2 936277. 16 g 98.3 [degF] 68 /min 132/80 mm[Hg] Vane coleman RN [facility] [employer] 3 11:32:32 Social History Question Answer Notes LastModified by Organization Details LastModified Time Tobacco Smoking Status Current Every Day Smoker cigars EAGLE Andre [place] [employer] [facility] [employer] 09/13/2022 14:52:20 Do You Have An Advance Directive? No [email or web address] Information not available 09/13/2022 Are You Blind Or Do You Have Difficulty Seeing? Yes Glasses Information not available 04/04/2023 Is Blood Transfusion Acceptable In An Emergency? Yes [email or web address] Information not available 09/13/2022 What Is Your Level Of Caffeine Consumption? Heavy [email or web address] Information not available 09/13/2022 In The 14 Days Before Symptom Onset, Have You Had Close Contact With A Laboratory-confi rmed COVID-19 While That Case Was Ill? No [email or web address] Information not available 09/13/2022 In The 14 Days Before Symptom Onset, Have You Had Close Contact With A Person Who Is Under Investigation For COVID-19 While That Person Was Ill? No [email or web address] Information not available 09/13/2022 Are You Deaf Or Do You Have Serious Difficulty Hearing? No Information not available 04/04/2023 What Type Of Diet Are You Following? REGULAR [email or web address] Information not available 09/13/2022 What Is The Highest Grade Or Level Of School You Have Completed Or The Highest Degree You Have Received? UT58160-1 [email or web address] Information not available 09/13/2022 Have There Been Any Changes To Your Family Or Social Situation? Yes Brother Passed In May [email or web address] Information not available 09/13/2022 What Is The Fluoride Status Of Your Home? Unknown [email or web address] Information not available 09/13/2022 Do You Use Insect Repellent Routinely? Yes [email or web address] Information not available 09/13/2022 Where [facility] You Live? [facility] [email or web address] Information not available 09/13/2022 Do You Have A Medical Power Of Senior Qa Analyst? No [email or web address] Information not available 09/13/2022 What Was The Date Of Your Most Recent Tobacco Screening? 09/13/2022 [email or web address] Information not available 09/13/2022 How Many Children Do You Have? 2 [email or web address] Information not available 09/13/2022 Do You Have Any Pets? No [email or web address] Information not available 09/13/2022 What Is Your Relationship Status? [email or web address] Information not available 09/13/2022 Do You Use Your Seat Belt Or Car Seat Routinely? Yes Information not available 09/13/2022 Do You Have Smoke And Carbon Monoxide Detectors In Your Home? Yes [email or web address] Information not available 09/13/2022 Are You Passively Exposed To Smoke? Yes [email or web address] Information not available 09/13/2022 Are There Any Smokers In Your House? No [email or web address] Information not available 09/13/2022 Do You Use Sunscreen Routinely? Yes [email or web address] Information not available 09/13/2022 How Many Years Have You Smoked Tobacco? 20 [email or web address] Information not available 09/13/2022 Have You Recently Traveled Abroad? No [email or web address] Information not available 09/13/2022 Do You Have Difficulty Walking Or Climbing Stairs? No Information not available 04/04/2023 Do You Have Any Dietary Restrictions? No [email or web address] Information not available 09/13/2022 Sex: Unknown Functional Status Question Answer Note LastModified by Organizat ion Details LastModified Time Do you use any illicit or recreational drugs? No [email or web address] Information not available 09/13/2022 Do you or have you ever used any other forms of tobacco or nicotine? No [email or web address] Information not available 09/13/2022 What is your level of alcohol consumption? Occasional [email or web address] Information not available 09/13/2022 Are you currently employed? Yes [email or web address] Information not available 09/13/2022 Do you have transportation difficulties? No Information not available 04/04/2023 Are you able to walk? [email or web address] Information not available 04/04/2023 Do you have difficulty doing errands alone? No Information not available 04/04/2023 Are you able to care for yourself? Yes Information n ot available 04/04/2023 What is your occupation? [employer] [email or web address] Information not available 09/13/2022 Do you have difficulty dressing or bathing? No Information not available 04/04/2023 What is your exercise level? None [email or web address] Information not available 09/13/2022 Mental Status Question Answer Note LastModified by Organizat ion Details LastModified Time Do you feel stressed (tense, restless, nervous, or anxious, or unable to sleep at night)? [id number] Information not available 09/13/2022 Do you have difficulty concentrating, remembering or making decisions? No Information no t available 04/04/2023 Family History Relationship Description Onset Age of this Age Resolved Age Notes LastModified by Organization Details LastModified Time Mother Family history of malignant neoplasm [email or web address] Not available 03/2023 14:48:52 Mother Rheumatoid arthritis [email or web address] Not available 03/2023 14:48:32 Mother Hypertensive disorder [email or web address] Not available 03/2023 14:48:45 Father Family history of malignant neoplasm [email or web address] Not available 03/2023 14:48:57 Medical History Condition Response KIDNEY DISEASE Y HAVE YOU BEEN HOSPITALIZED OR SEEN IN [facility] IN THE PAST YEAR ? N Immunizations Vaccine Type Date Status Note Provider [facility] e and Address Organization Details Recorded Time COVID-19 vaccine, vector-nr, rS-Ad26, PF, 0.5 mL 10/10/2020 completed Not Available [facility] 3 18:11:51 COVID-19, mRNA, LNP-S, PF, 100 mcg/0.5mL dose or 50 mcg/0.25mL dose 07/12/2021 completed Not Available [facility] 3 18:11:51 Past Encounters Encounter ID Performer Location Encounter Start Date Encounter Closed Date Diagnosis/Indication Diagnosis SNOMED-CT Code Diagnosis ICD10 Code Diagnosis Note [id number] Khoi Syed MD [facility] Internal Med [address] [facility] , [facility] [place] [address] 09/13/2022 14:28:49 09/13/2022 16:03:41 Screening for cardiovascular system disease 680365139 Z13.6 Screening for malignant neoplasm of prostate 392823384 Z12.5 Adult heal th examination 636213074 Z00.00 [id number] Khoi Syed MD [facility] Internal Med [address] [place] [address] 04/04/2023 11:06:21 04/04/2023 12:25:41 Hypercholesterolemia 07004729 E78.00 Gastroesop hageal reflux disease 755568078 K21.9 Health Concerns Section Related Observation LastModified by Organization Detai ls LastModified Time None Recorded Concern Status LastModified by Organization Details LastModified Time None Recorded Advance Directives Directive N: Payers Encounter Date Sequence Insurance Name Policy Number Policy Cordero Covered Member ID Cordero Member ID Guarantor Name 09/13/2022 1 [place] Freddy Gabriel [id number] Freddy Janerath 09/13/2022 2 [place] [id number] Freddy Gabriel [id number] Freddy Janerath 04/04/2023 1 [place] Freddy Janerath [id number] Freddy Janerath 04/04/2023 2 [place] [id number] Freddy Janerath [id number] Freddy Gabriel Notes Date Note Type Note Provider Name and Address Organization Details Recorded Time 09/13/2022 text/html 67-year-old new patient meds none allergies none surgeries none family history dad liver cancer socially does not smoke drinks 12 beers a week retired COVID vaccine 1 booster flu not up-to-date shingles not up-to-date Khoi Syed MD [address], [place], [address], [employer] 09/15/2022 20:07:15 04/04/2023 text/html Ankle hurt Mildl y elevated cholesterol Khoi Syed MD [address], [place], [address], [employer] 04/14/2023 21:34:31
--- OUTSIDE RECORDS SUMMARY | 2024-12-01 07:41 | XMS_ITS | Data Portability ---
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 Plan of Treatment Reminders Order Date Submit Date Provider Last Modified By Organization Details Last Modified Time Details Appointments None recorded. Lab influenza virus A + B + SARS-CoV-2 (COVID19) Ag panel, rapid IA, upper respiratory specimen 2024 025 [facility], [address] [place] [address], [address], [place], [address], 20:20:37 Referral None recorded. Procedures None recorded. Surgeries None recorded. Imaging None recorded. Medication Orders None recorded. Patient TargetsNo targets recorded. Patient Instructions Encounter Date Encounter Id Patient Instructions Last Modified By Organization Details Last Modified Time 08/26/2024 [id number] influenza (flu): care instructions [email or web address] Not available 08/26/2024 20:20:37 Pt has been [...] or persist after 48 hours of treatment. [email or web address] Not available 08/26/2024 20:20:48 Reason for Referral None Reported. Results Created Date Observation Date Name Description Value Unit Range Abnormal Flag Note LastModifiedBy Organization Detail LastModifiedTime 08/26/1908/26/2024 influ stiven virus A + B + SARS- CoV-2 (COVI D19) Ag panel , rapid IA, upper respi rator y speci men Flu/COVID-19 Positi ve Flu A Not Available [facility] [address] [facility], [address], [place], [address], 08/26/2024 20:19:59 Result Notes None recorded. Problems Name Problem SNOMED Code Status Onset Date Resolution Date Notes Provider Name and Address Organization Details Recorded Time Kidney disease 41337780 Completed 025 08/26/2024 Leroy Ortiz [facility] 19:57:36 Problem Notes None recorded. Procedures Surgical History Date Name Laterality Status Provider Name and Address Organization Details Recorded Time tonsillectomy completed Leroy Ortiz [facility] 08/26/2024 19:58:06 Imaging Results None recorded. Procedure [...] index (BMI) Body weight Body temperature Systolic And Diastolic Provider Name and Address Organization Details Last Updated DateTime 89 /min 94 % 94 % 16 /min 182.88 cm 35.9 kg/m2 368002. 98 g 97.8 [degF] 164/93 mm[Hg] Leroy Ortiz [facility] 19:56:30 Social History None recorded. Functional Status None recorded. Mental Status None recorded. Family History Nothing Reported. Medical History Condition Response Coronary Artery Disease N Gout N Anxiety/Depression N Atrial Fibrillation N Colon Cancer N Kidney Stones N Hyperthyroidism N Blood disorders N Breast Cancer N Ostomy N COPD N Depression N Lung Disease N Glaucoma N Hypothyroidism N Pacemaker N Peripheral Arterial Disease N [...] Polyps N Brain Injury N Heart Attack ([place]) N Diabetes N Anticoagulation therapy N Cardiomyopathy [...] SNOMED-CT Code Diagnosis ICD10 Code Diagnosis Note [id number] Bogdan Arredondo, CENTER RECEPTIONIST-C [facility] [address] [facility], [place] [address] 08/26/2024 19:51:27 08/26/2024 20:25:08 Influenza-like illness 61628559 B34.9 Influenza caused by Influenza A virus 982235314 J09.X2 Pt is outside the opportune window [...] Cordero Member ID Guarantor Name 08/26/2024 2 [place] [id number] Rex Gabriel [id number] Freddy Gabriel 08/26/2024 1 [place] Freddy Gabriel [id number] Freddy Gabriel Notes Date Note Type Note Provider Name and Address Organization Details Recorded Time 08/26/2024 text/html Upper Respirator y SymptomsReported bypatient.Location:[facility]; nasal Quality:congested Severity:moderate Onset/Timing:date of onset: (08/22/2024) Context:no sick contacts Associated Symptoms:no sputum production; no shortness of breath; no wheezing; no sore throat; no vomiting; no diarrhea; no nausea; no conjunctivitis;fatigue ;headache;malaise Bogdan Arredondo, CENTER RECEPTIONIST-C [address] [facility], [place], [address], [facility] 08/26/2024 20:21:04
[2024-12-01 08:10] LABS: Basophils Percent Auto 0.5 % (0.2-1.2); Eosinophils Absolute Auto 0.2 K/mm3 (0-0.3); Eosinophils Percent Auto 3.5 % (0-4.4); Hematocrit 45.1 % (42.0-52.0); Immature Granulocyte Absolute 0.03 K/mm3 (0.00-0.031); Immature Granulocyte Percent A 0.5 % (0-0.5); Lymphocytes Absolute Auto 2.09 K/mm3 (0.9-3.2); Lymphocytes Percent Auto 33.7 % (18.3-44.2); Mean Corpuscular HGB Conc 33.3 g/dl (32-36); Mean Corpuscular Hemoglobin 32.5 pg (26-34); Mean Corpuscular Volume 97.8 fl (80-100); Mean Platelet Volume 9.7 fl (7.4-10.4); Monocytes Absolute Auto 0.6 K/mm3 (0.1-0.6); Monocytes Percent Auto 9.3 % (2.6-8.5); Neutrophils Absolute Auto 3.3 K/mm3 (1.3-6.7); Neutrophils Percent Auto 52.5 % (45.5-73.1); Platelet Count Result 176 k/mm3 (150-375); Red Blood Count 4.61 M/mm3 (4.6-6.20); Red Cell Distribution Width 12.5 % (11.5-14.5); White Blood Count 6.2 K/mm3 (4.5-10.0)
[2024-12-01 09:47] LABS: Prostate Specific Antigen 1.3 ng/mL (< OR = 4.0)
[2024-12-05 11:09] LABS: Testosterone Free 30.9 pg/mL (35.0-155.0); Testosterone Total 198 ng/dL (250-1100)
== END 2024-12-01 07:37 | disposition home or self-care (01) ==
PROVIDERS: PCP Internal Medicine; Visit Provider Internal Medicine
DX: R79.89 Other specified abnormal findings of blood chemistry (principal)
CPT/HCPCS: 36415; 84153; 84402; 84403; 85025

== ENCOUNTER 2025-04-05 07:01 | Outpatient (CLI) | payer MEDICARE, BC, SELFPAY ==
[2025-04-05 07:47] LABS: Hematocrit 46.0 % (42.0-52.0); Hemoglobin 15.2 g/dL (14.0-18.0); Immature Granulocyte Percent A 0.4 % (0-0.5); Lymphocytes Absolute Auto 2.44 K/mm3 (0.9-3.2); Mean Corpuscular HGB Conc 33.0 g/dl (32-36); Mean Corpuscular Hemoglobin 32.4 pg (26-34); Mean Corpuscular Volume 98.1 fl (80-100); Nucleated Red Blood Cells Absolute Auto 0.000 K/mm3 (0.0-0.012); Nucleated Red Blood Cells Perc 0.0 % (0.0-0.2); Platelet Count Result 211 k/mm3 (150-375); Red Blood Count 4.69 M/mm3 (4.6-6.20); White Blood Count 10.0 K/mm3 (4.5-10.0)
[2025-04-05 08:17] LABS: Alanine Aminotransferase 29 U/L (6-50); Albumin Level 4.2 g/dL (3.5-5.1); Alkaline Phosphatase 96 U/L (38-126); Anion Gap 7 mmol/L (4-12); Aspartate Amino Transferase 28 U/L (17-59); Bilirubin,Total 0.6 mg/dL (0.2-1.3); Blood Urea Nitrogen 14 mg/dL (9-20); Calcium 9.0 mg/dL (8.4-10.2); Carbon Dioxide 28 mmol/L (22-30); Chloride 102 mmol/L (98-107); Cholesterol 126 mg/dL (0-200); Estimated Glomerular Filt Rate > 60; Glucose 95 mg/dL (65-110); HDL Direct 57 mg/dL; Potassium 4.6 mmol/L (3.4-5.0); Sodium 137 mmol/L (137-145); Total Protein 7.1 g/dL (6.3-8.2); Triglycerides 72 mg/dL (<150)
[2025-04-05 08:48] LABS: Prostate Specific Antigen 1.7 ng/mL (< OR = 4.0)
[2025-04-08 13:08] LABS: Free Testosterone (Direct) 29.5 pg/mL (6.6-18.1)
== END 2025-04-05 07:02 | disposition home or self-care (01) ==
PROVIDERS: PCP Internal Medicine; Visit Provider Internal Medicine
DX: R79.89 Other specified abnormal findings of blood chemistry (principal); E78.5 Hyperlipidemia, unspecified
CPT/HCPCS: 36415; 80053; 80061; 84153; 84402; 84403; 85025